=== PATIENT | female | born 1965 | race Hispanic/Latino ===

== ENCOUNTER 2019-02-22 14:24 | Inpatient (IN) | payer OTHER, SELFPAY ==
--- NOTE | 2019-02-22 15:27 | RAD ---
EXAM: 3 views of the right foot HISTORY: Foot pain COMPARISON: None FINDINGS: 3 views of the right foot shows no evidence of acute fracture or dislocation. Moderate diff use soft tissue swelling is seen. No degenerative changes are present. IMPRESSION: No evidence of acute osseous abnormality.
--- NOTE | 2019-02-22 15:29 | RAD ---
RIGHT ANKLE 3 VIEWS: HISTORY: Pain. FINDINGS: Scattered soft tissue swelling and subcutaneous fat stranding noted involving the lower leg and ankle , particularly dorsally over the ankle in a diffuse fashion. No evidence for acute fracture or dislo cation. Probable small secondary ossification center of the distal fibula. IMPRESSION: Marked soft tissue swelling. No acute fracture or dislocation. POS: [facility]
--- NOTE | 2019-02-22 16:40 | ULT ---
EXAM: Right lower extremity venous ultrasound HISTORY: Right lower extremity pain and edema COMPARISON: None TECHNIQUE: Multiplanar grayscale and color Doppler images were obtained in a right lower extremity ve nous ultrasound. Spectral analysis of the Doppler waveforms were performed. FINDINGS: There is visible thrombus in the right distal superficial femoral vein and popliteal vein. This extends into the posterior tibial vein. No thrombus is seen in the common femoral vein or profunda femoral vein. The greater saphenous vein shows no evidence of thrombus. IMPRESSION: DVT in the right leg as above.
[2019-02-22 17:56] LABS: Hemoglobin 7.6 g/dL (12.0-16.0); Mean Corpuscular HGB CONC 31.3 g/dL (32.0-36.0); Mean Corpuscular Hemoglobin 19.6 pg (27.0-31.0); Mean Corpuscular Volume 62.5 fL (78.0-98.0); Mean Platelet Volume 10.4 fL (7.4-10.4); Platelet Count 237 thou/uL (130-400); RBC Distribution Width 15.5 % (11.5-14.5); Red Blood Cell (RBC) Count 3.89 mill/uL (4.20-5.40); White Blood Cell (WBC) Count 7.2 thou/uL (4.8-10.8)
[2019-02-22 18:14] LABS: #Eosinphils 0.2 thou/uL (0.0-0.7); #Lymphocytes 1.4 thou/uL (1.20-3.40); #Monocytes 0.5 thou/uL (0.11-0.59); #Neutrophils 5.1 thou/uL (1.40-6.50); %Basophils 0.2 % (0.0-1.0); %Eosinophils 2.8 % (0.0-10.0); %Lymphocytes 19.1 % (21.0-51.0); %Neutrophils 70.9 % (42.0-75.0); Anisocytosis SLIGHT = 6-15 cells (100X) (0-5/hpf); Elliptocytes SLIGHT = 2-5 cells (100X) (0-1/hpf); Hypochromia MODERATE=16-30 cells (100X) (0-5/hpf); MDiff Complete? YES; Microcytosis MODERATE=15-30 cells (100X) (0-5/hpf); Ovalocytes SLIGHT = 2-5 cells (100X) (0-1/hpf); Platelet Morphology Comment Appears Adequate; Poikilocytosis SLIGHT = 6-15 cells (100X) (0-5/hpf); Polychromasia SLIGHT = 2-3 cells (100X) (0-2/hpf); Reflex for Review?? YES; Schistocytes SLIGHT = 2-5 cells (100X) (0-1/hpf); Tear Drops SLIGHT = 2-5 cells (100X) (0-1/hpf)
[2019-02-22 18:16] LABS: ALT (SGPT) 10 U/L (8-55); AST (SGOT) 18 U/L (5-34); Albumin 3.9 g/dL (3.5-5.0); Alkaline Phosphatase 75 U/L (40-110); Anion Gap 12 mmol/L (10-20); BUN (Urea Nitrogen) 15 mg/dL (9.8-20.1); Bilirubin, Total 0.4 mg/dL (0.2-1.2); Calc. Creatinine Clearance 0 mL/min (70-130); Calcium 8.9 mg/dL (7.8-10.44); Carbon Dioxide 22 mmol/L (22-29); Chloride 108 mmol/L (98-107); Estimated GFR-MDRD Greater than 90; Globulin 3.4 g/dL (2.4-3.5); Glucose 115 mg/dL (70-105); Potassium 3.1 mmol/L (3.5-5.1); Protein, Total 7.3 g/dL (6.0-8.3); Sodium 139 mmol/L (136-145)
--- NOTE | 2019-02-22 20:38 | PDOC.FPRHP ---
- History of Present Illness Chief Complaint: Calf Swelling History of Present Illness: Pt is a 53 yo female without a primary care provider who presents with a 3 week history of R ankle pain, swelling. The swelling moved proximally towards knee where she states swelling ends. Due to the pain and swelling she was seen in the emergency department. In the ED she was found to have a DVT in her R LE. She denies recent travel, injury, surgery to leg, smoking, oral contraception. She does not have any follow up with a PCP - no cancer screenings performed. She denies blood in stool except for one instance in the last month of bright red blood. She does not have family history of colon cancer - brother had pancreatic cancer, mother lung cancer. She did endorse a ~15 pound weight loss over the last couple of months although she states her diet as decreased. She denies SOB, vision changes, lightheadedness, tachycardia, palpitations, LOC, syncope. In the ED she was also found to have a Hgb of 7.8 which prevented her from being discharged with outpt workup. - Allergies/Adverse Reactions Allergies Allergy/AdvReac Type Severity Reaction Status Date / Time acetaminophen [From Tylenol] AdvReac dizziness Verified 02/22/19 21:00 - Home Medications Medication Instructions Recorded Confirmed Type No Known 02/22/19 02/22/19 History - History PMHx: none PSHx: none FHx: Brother - pancreatic cancer, Mother - lung cancer Social: denies alcohol, drugs, tobacco - Review of Systems General: reports: weight/appetite/sleep changes. denies: fever/chills Eyes: denies: eye pain, vision changes Respiratory: denies: cough, congestion, shortness of breath Cardiovascular: denies: chest pain, palpitation Gastrointestinal: denies: nausea, vomiting, diarrhea, constipation Genitourinary: denies: incontinence, dysuria, polyuria Skin: denies: rashes, lesions Neurological: denies: numbness, syncope - Vital signs BP: 177/103 HR: 88 RR: 16 Tmax: 99.3 Pox: 100% on RA Wt: 83.1kg - Physical Exam Constitutional: NAD, awake, alert and oriented HEENT: PERRLA, EOMI Neck: supple, FROM Heart: RRR, normal S1/S2 Lungs: CTAB, no respiratory distress, good air movement Abdomen: soft, non-tender, bowel sounds present Musculoskeletal: ROM grossly normal -Musculoskeletal: R LE extremity swollen compared to L with mild tender to palpation; 16.25 cm R calf vs 13.75 cm L calf Neurological: no focal deficit, CN II-XII intact Skin: good turgor, capillary refill <2 seconds Heme/Lymphatic: no purpura, no petechia Psychiatric: good judgment and insight FMR H&P: Results - Labs Result Diagrams: 02/23/19 06:46 02/23/19 06:46 Lab results: WBC 7.2 thou/uL (4.8-10.8) 02/22/19 17:45 Hgb 7.6 g/dL (12.0-16.0) L 02/22/19 17:45 Hct 24.3 % (36.0-47.0) L 02/22/19 17:45 MCV 62.5 fL (78.0-98.0) L 02/22/19 17:45 Plt Count 237 thou/uL (130-400) 02/22/19 17:45 Neutrophils % 70.9 % (42.0-75.0) 02/22/19 17:45 Sodium 139 mmol/L (136-145) 02/22/19 17:45 Potassium 3.1 mmol/L (3.5-5.1) L 02/22/19 17:45 Chloride 108 mmol/L (98-107) H 02/22/19 17:45 Carbon Dioxide 22 mmol/L (22-29) 02/22/19 17:45 BUN 15 mg/dL (9.8-20.1) 02/22/19 17:45 Creatinine 0.67 mg/dL (0.6-1.1) 02/22/19 17:45 Glucose 115 mg/dL (70-105) H 02/22/19 17:45 Calcium 8.9 mg/dL (7.8-10.44) 02/22/19 17:45 Total Bilirubin 0.4 mg/dL (0.2-1.2) 02/22/19 17:45 AST 18 U/L (5-34) 02/22/19 17:45 ALT 10 U/L (8-55) 02/22/19 17:45 Alkaline Phosphatase 75 U/L (40-110) 02/22/19 17:45 Serum Total Protein 7.3 g/dL (6.0-8.3) 02/22/19 17:45 Albumin 3.9 g/dL (3.5-5.0) 02/22/19 17:45 - Radiology Interpretation US - venous Status: report reviewed by me (R distal superficial femoral, popliteal, posterior tibial vein venous thrombus) FMR H&P: A/P - Problem List (1) DVT (deep vein thrombosis) in Current Visit: Yes Status: Acute Code(s): O22.30 - DEEP PHLEBOTHROMBOSIS IN , UNSPECIFIED TRIMESTER (2) Anemia Current Visit: Yes Status: Acute Code(s): D64.9 - ANEMIA, UNSPECIFIED (3) Microcytic anemia Current Visit: Yes Status: Acute Code(s): D50.9 - IRON DEFICIENCY ANEMIA, UNSPECIFIED (4) Hypokalemia Current Visit: Yes Status: Acute Code(s): E87.6 - HYPOKALEMIA - Plan Pt is a 53 yo female with no primary care who is being treated for a DVT in RLE , found to be anemic. # DVT RLE U/S revealed thrombus in superficial femoral, popliteal, and posterior tibial vein. Pt has RLE swelling for 3 weeks. She denies chest pain,dyspnea - no concern for PE at this time. She does not appear to have an inciting reason such as recent trip, cancer, injury, surgery, thrombophilia, venous stasis but this will need to be further stratified. She also has poor primary prevention and has not had screening for cancer. No history of colon cancer in family although pt found to have microcytic anemia. She did endorse a decrease in appetite due to GERD over the previous couple of months, 15 # weight loss. States she has poor diet. - start warfarin, lovenox - pt does not have insurance - PTINR studies pending # Microcytic Anemia As above. Pt is post-menopausal. Denies blood in stool except 1 episode of bright blood. - pending RBC folate, B12, Coag panel, Peripheral smear, Hgb electrophoresis, occult blood stool # Need for PCP # Primary Prevention - needs well woman exam, breast exam, colonoscopy in outpt setting. # Hypokalemia - monitor # HTN - monitor at this time. Will likely need medication in am. Fluids: PO Diet: Regular VTE: therapeutic Code: Full Dispo: < 2 day stay FMR H&P: Upper Level - Plan Date/Time: 02/22/192037 I, Agusto Harrington MD, have evaluated this patient and agree with findings/plan as outlined by sports intern resident. Pertinent changes/additions are listed here. Barby Alvarez is a 53 year old F with no known PMH who presented to the ED with a 2 wk history of right LE edema and tenderness. States swelling has progressively worsened during that time. She denies any personal or family history of blood clots. Denies any periods of prolonged immobilization. No hx of smoking or HRT. Has no PCP and has never kept up with preventative screenings. Denies any GI bleeding with exception of occasional small amount of BRBPR. LMP was 5 years ago. In the ED, LE US showed DVT in R leg. Labs significant for Hg of 7.6, platelets 237, WBC 7.2. VSS in ED. Patient admitted for initiation of treatment for DVT and eval of anemia. She is uninsured. Hypercoag panel, PT, PTT, INR, iron studies, B12, rbc folate and hg electrophoresis ordered. Starting therapeutic lovenox and coumadin started. CM consulted. Treatment plan for unprovoked dvt to be determined based on lab results. Anticipate hospital stay <48 hours. Please see sports intern note above for full H&P, which I have reviewed and agree with. Addendum - Attending - Attending Attestation Date/Time: 02/23/19 6816 I personally evaluated the patient and discussed the management with Dr. Berg /Len I agree with the History, Examination, Assessment and Plan documented above with any addition or exceptions noted below. See my event note for details.
[2019-02-22 20:39] VITALS: BMI 27.8
[2019-02-22 22:18] LABS: Iron 23 ug/dL (50-170); Iron Binding Capacity, Total 459 mcg/dL (265-497)
[2019-02-22 22:20] LABS: PTT 34.4 SEC (22.9-36.1); Prothrombin Time 13.6 SEC (12.0-14.7)
[2019-02-22 22:28] LABS: D-Dimer Test 3.65 *mcg/mL (0.27-0.43)
--- NOTE | 2019-02-22 22:32 | PDOC.EVN ---
Addendum - Attending - Attending Attestation Date/Time: 02/22/19 9031 I personally evaluated the patient and discussed the management with Dr. Berg /Len I agree with the History, Examination, Assessment and Plan documented above with any addition or exceptions noted below. 53 yo HF PMH white coat HTN. Presents with 2 wk hx worsening right leg swelling and tenderness. Denies CP/SOB. No personal or FHx of DVT. No hx recurrent SAB. Denies HRT or smoking. Exam shows right leg swelling to knee with 1+ pitting edema. Labs show microcytic anemia (hemoglobin 7.6, MCV 62). Venous doppler of right leg showed DVT. No concern for PE at this time. Uninsured. Admitted for evaluation of anemia and treatment of DVT. Hypercoagulation panel, iron studies , B12, RBC folate, and hemoglobin electrophoresis ordered. Has not had routine preventive screening so need to consider malignancy but lower suspicion given no constitutional sx. Start warfarin with lovenox bridge. Further treatment and dispo pending lab evaluation.
[2019-02-22 22:43] LABS: Ferritin Less than 2.00 ng/mL (10-291); Homocysteine 7.81 umol/L (5.08-15.39); Vitamin B12 499 pg/mL (211-911)
[2019-02-22] MEDS ORDERED: Warfarin Sodium 5 MG TAB PO SCH (23:15)
[2019-02-23] MEDS ORDERED: Potassium Chloride 20 MEQ TAB PO SCH (05:00)
--- NOTE | 2019-02-23 06:30 | PDOC.FM ---
- Subjective Subjective: Patient doing well this morning. Discussed plan of care, including bridging anticoagulation therapy. Patient agreeable with plan of care. Discussed importance of preventative health services. 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 Discussed clinics in the area of [place] scale. Patient agreeable. - Objective Vital Signs & Weight: Vital Signs (12 hours) Temp Pulse Resp BP Pulse Ox 02/23/19 03:01 99.0 F 89 18 138/79 100 02/22/19 22:51 98.5 F 93 20 153/78 H 100 02/22/19 20:38 98.5 F 84 18 176/91 H 100 Weight Weight 83.143 kg Result Diagrams: 02/23/19 06:46 02/23/19 06:46 Phys Exam - Physical Examination Constitutional: NAD HEENT: moist MMs, sclera anicteric Neck: supple, full ROM Respiratory: no wheezing, clear to auscultation bilateral Cardiovascular: RRR, no significant murmur Gastrointestinal: soft, non-tender Musculoskeletal: pulses present 1+ edema R leg to knee Neurological: normal sensation, moves all 4 limbs Psychiatric: normal affect, A&O x 3 Skin: no rash, normal turgor Dx/Plan (1) Anemia Code(s): D64.9 - ANEMIA, UNSPECIFIED Status: Acute (2) DVT (deep vein thrombosis) in Code(s): O22.30 - DEEP PHLEBOTHROMBOSIS IN , UNSPECIFIED TRIMESTER Status: Acute (3) Hypokalemia Code(s): E87.6 - HYPOKALEMIA Status: Acute (4) Microcytic anemia Code(s): D50.9 - IRON DEFICIENCY ANEMIA, UNSPECIFIED Status: Acute - Plan Plan: Pt is a 53 yo female with no primary care who is being treated for a DVT in RLE , found to be anemic. # DVT RLE U/S: thrombus in superficial femoral, popliteal, and posterior tibial vein. Pt has RLE swelling for 3 weeks. She denies chest pain,dyspnea - no concern for PE at this time. DVT of unknown cause: no recent trip, cancer, injury, surgery, thrombophilia, venous stasis. No history of colon cancer in family although pt found to have microcytic anemia. - Continue warfarin, lovenox - pt does not have insurance so will likely pursue therapeutic anticoagulation in the hospital as she would have poor outpatient follow up - PT/INR studies wnl, with INR at 1.0; will continue to monitor INR and titrate warfarin accordingly # Microcytic Anemia As above. Pt is post-menopausal. Denies blood in stool except 1 episode of bright blood. -B12 wnl -iron low at 23, ferritin low at <2.0. TIBC 459; will start patient on iron at this time - pending RBC folate, Peripheral smear, Hgb electrophoresis, occult blood stool # Need for PCP -will provide TAMP card and list of PCPs in the area # Primary Prevention - needs well woman exam, breast exam, colonoscopy in outpt setting. # Hypokalemia - improved today at 3.4, monitor # HTN - BP 138/79 this am. Will continue to monitor and add medication if necessary Fluids: PO Diet: Regular VTE: therapeutic lovenox bridging to warfarin Code: Full Dispo: inpatient for therapeutic anticoagulation for R ankle DVT
[2019-02-23 07:07] LABS: #Eosinphils 0.3 thou/uL (0.0-0.7); #Lymphocytes 1.5 thou/uL (1.20-3.40); #Monocytes 0.6 thou/uL (0.11-0.59); #Neutrophils 3.7 thou/uL (1.40-6.50); %Basophils 0.7 % (0.0-1.0); %Eosinophils 4.4 % (0.0-10.0); %Lymphocytes 24.8 % (21.0-51.0); %Neutrophils 61.1 % (42.0-75.0); Hemoglobin 7.3 g/dL (12.0-16.0); Mean Corpuscular HGB CONC 30.9 g/dL (32.0-36.0); Mean Corpuscular Hemoglobin 19.4 pg (27.0-31.0); Mean Corpuscular Volume 62.7 fL (78.0-98.0); Mean Platelet Volume 10.4 fL (7.4-10.4); Platelet Count 234 thou/uL (130-400); RBC Distribution Width 15.6 % (11.5-14.5); Red Blood Cell (RBC) Count 3.77 mill/uL (4.20-5.40); White Blood Cell (WBC) Count 6.1 thou/uL (4.8-10.8)
[2019-02-23 07:32] LABS: ALT (SGPT) 9 U/L (8-55); AST (SGOT) 15 U/L (5-34); Albumin 3.6 g/dL (3.5-5.0); Alkaline Phosphatase 67 U/L (40-110); Anion Gap 9 mmol/L (10-20); BUN (Urea Nitrogen) 10 mg/dL (9.8-20.1); Bilirubin, Total 0.4 mg/dL (0.2-1.2); Calc. Creatinine Clearance 146 mL/min (70-130); Calcium 8.8 mg/dL (7.8-10.44); Carbon Dioxide 25 mmol/L (22-29); Chloride 109 mmol/L (98-107); Estimated GFR-MDRD Greater than 90; Globulin 3.2 g/dL (2.4-3.5); Glucose 101 mg/dL (70-105); Potassium 3.4 mmol/L (3.5-5.1); Protein, Total 6.8 g/dL (6.0-8.3); Sodium 140 mmol/L (136-145)
[2019-02-23] MEDS ORDERED: Ferrous Sulfate 325 MG TAB PO SCH (08:00)
[2019-02-23] MEDS: Enoxaparin Sodium 80 MG/0.8 ML SYRINGE SC SCH ×2 (09:02→20:16)
[2019-02-23] MEDS ORDERED: Warfarin Sodium 5 MG TAB PO SCH (17:00)
--- NOTE | 2019-02-23 23:34 | CON ---
DATE OF CONSULTATION: 02/23/2019 REASON FOR CONSULTATION: Anemia, history of positive fecal occult blood. HISTORY OF PRESENT ILLNESS: Ms. Barby Alvarez is very pleasant 53-year-old female, hospitalized with deep vein thrombosis of right lower extremity. She is on Lovenox. The patient has anemia on admission. The admitting CBC showed anemia with WBC of 7,200, hemoglobin 7.6, hematocrit 24.3, MCV 62.5. Today, the blood count is the same as before and slightly dropped 7.3 hemoglobin. The patient has no prior history of anemia. The patient had not seen a doctor in many years. The patient's bowel movements are regular. She has a BM every day. She denies any hematochezia, any melena, or any other source of blood loss. The patient had a fecal occult blood done by Dr. Estefani Calle today and the occult blood test came back positive. However, the patient has no history of overt GI bleeding. The patient had no abdominal pain, no nausea, or vomiting. The patient has a history of chronic acid reflux and she says she has eating habits are eating more healthy and she had no heartburn or dyspepsia. The patient has no abdominal pain, no nausea, or vomiting. There is no history of any blood loss from genitourinary tract. No nose bleeding. No gum bleeding. She has good energy level. She does not feel any fatigue or tiredness. There is no family history of colon cancer, although there is family history of pancreatic cancer and lung cancer. The patient has no specific GI symptoms. ALLERGIES: NO ALLERGIES. SOCIAL HISTORY: The patient does not smoke or drink alcohol. MEDICAL ILLNESSES: None. PAST SURGICAL HISTORY: None. FAMILY HISTORY: Brother, pancreatic cancer. Mother, lung cancer. SOCIAL HISTORY: The patient does not smoke or drink alcohol. REVIEW OF SYSTEMS: A 10 point system review totally unremarkable except for the pain over the right lower extremity and was found to have deep vein thrombosis. She has anemia. Her energy level is good. She has no fatigue or tiredness. PHYSICAL EXAMINATION: GENERAL: She is a very pleasant Latin-Turk[place] female, appears very comfortable. She is awake, alert, oriented to time, place, and person. VITAL SIGNS: Afebrile. Pulse is 78, blood pressure 148/79. HEENT: Conjunctivae are clear. NECK: Supple. No adenitis or thyromegaly noted. CARDIOVASCULAR: First and second heart sounds heard. LUNGS: Clear to auscultation. ABDOMEN: Soft. Abdomen is nondistended. Abdomen is nontender. No organomegaly. EXTREMITIES: No edema, just some mild tenderness over the right leg and thigh noted_. LABORATORY DATA: Shows anemia which is microcytic, MCV 62.5, platelet count 137,000, hemoglobin 7.6, hematocrit 24.3. Chemistry panel is basically normal with normal LFTs and albumin is 3.6. The fecal occult blood test done by Dr. Goldberg came back positive. CLINICAL IMPRESSION: A 53-year-old female with deep vein thrombosis of right lower extremity, on Lovenox. She has microcytic anemia, but she has no GI symptoms. She had positive stool for occult blood. However, she has no history of any hematochezia or melena. RECOMMENDATIONS: 1. Iron supplement. 2. Continue Lovenox. 3. From GI standpoint, the patient can be discharged home and we will bring the patient back as outpatient after 1 month of anticoagulation. At present time, there is no need for any emergent endoscopy as she has no overt GI bleeding. She can go home on blood thinners and will come back to me in 1 month for EGD and colonoscopy. Job ID: [id number] [facility] HOSPITALChasidy
--- NOTE | 2019-02-24 05:19 | PDOC.FM ---
- Subjective Subjective: Patient doing well this morning. Discussed that she met with Dr. De Paz yesterday, and he recommended outpatient follow up for colonoscopy. Patient states she found an insurance plan she is going to apply for tomorrow, and she plans to have follow up with an outpatient clinic as well. She met with produce service team member yesterday to discuss food choices while on warfarin. She has also been reading on what to do to prevent future DVTs. - Objective Vital Signs & Weight: Vital Signs (12 hours) Temp Pulse Resp BP Pulse Ox 02/23/19 20:15 99.0 F 88 18 112/71 99 02/23/19 17:41 99.3 F 99 14 136/72 100 Weight Weight 83.143 kg I&O: 02/22/19 02/23/19 02/24/19 06:59 06:59 06:59 Intake Total 900 Balance 900 Result Diagrams: 02/23/19 06:46 02/23/19 06:46 Phys Exam - Physical Examination Constitutional: NAD HEENT: moist MMs, sclera anicteric Neck: supple, full ROM Respiratory: no wheezing, clear to auscultation bilateral Cardiovascular: RRR, no significant murmur Gastrointestinal: soft, non-tender Musculoskeletal: pulses present 1+ edema RLE Neurological: non-focal, moves all 4 limbs Psychiatric: normal affect, A&O x 3 Skin: no rash, normal turgor Dx/Plan (1) Anemia Code(s): D64.9 - ANEMIA, UNSPECIFIED Status: Acute (2) DVT (deep vein thrombosis) in Code(s): O22.30 - DEEP PHLEBOTHROMBOSIS IN , UNSPECIFIED TRIMESTER Status: Acute (3) Hypokalemia Code(s): E87.6 - HYPOKALEMIA Status: Acute (4) Microcytic anemia Code(s): D50.9 - IRON DEFICIENCY ANEMIA, UNSPECIFIED Status: Acute - Plan Plan: Pt is a 53 yo female with no primary care who is being treated for a DVT in RLE , found to be anemic. # DVT RLE U/S: thrombus in superficial femoral, popliteal, and posterior tibial vein. Pt has RLE swelling for 3 weeks. She denies chest pain,dyspnea - no concern for PE at this time. DVT of unknown cause: no recent trip, cancer, injury, surgery, thrombophilia, venous stasis. No history of colon cancer in family although pt found to have microcytic anemia. - Continue warfarin, lovenox - pt does not have insurance so will likely pursue therapeutic anticoagulation in the hospital as she would have poor outpatient follow up - INR at 1.1 today after 2 days of 5mg warfarin; will increase warfarin to 10mg and recheck INR tmrw - coagulation panel pending # Microcytic Anemia As above. Pt is post-menopausal. Denies blood in stool except 1 episode of bright blood. -B12 wnl -iron low at 23, ferritin low at <2.0. TIBC 459; patient started on iron - pending RBC folate, Peripheral smear, Hgb electrophoresis -FOBT+ -consulted GI, Dr. De Paz, on 02/23, appreciate recs -rec iron supplementation, and continued anticoagulation with f/u with him in 1 month for outpatient EGD and colonoscopy # Need for PCP -will provide TAMP card and list of PCPs in the area # Primary Prevention - needs well woman exam, breast exam -will have colonoscopy with Dr. De Paz in outpt setting. # Hypokalemia - improved 02/23 3.4, monitor # HTN, resolved - BP stable overnight. Will continue to monitor and add medication if necessary Fluids: PO Diet: Regular VTE: therapeutic lovenox bridging to warfarin Code: Full Dispo: inpatient for therapeutic anticoagulation for RLE DVT
[2019-02-24 06:06] LABS: INR-International Normal Ratio 1.1; PTT 42.9 SEC (22.9-36.1); Prothrombin Time 13.9 SEC (12.0-14.7)
[2019-02-24] MEDS: Ferrous Sulfate 325 MG TAB PO SCH ×2 (09:04→16:52)
[2019-02-24] MEDS: Enoxaparin Sodium 80 MG/0.8 ML SYRINGE SC SCH ×2 (09:04→21:19)
[2019-02-24 09:07] LABS: #Basophils 0.1 thou/uL (0.0-0.2); #Eosinphils 0.2 thou/uL (0.0-0.7); #Lymphocytes 1.4 thou/uL (1.20-3.40); #Monocytes 0.4 thou/uL (0.11-0.59); #Neutrophils 3.3 thou/uL (1.40-6.50); %Basophils 1.8 % (0.0-1.0); %Eosinophils 2.9 % (0.0-10.0); %Lymphocytes 26.2 % (21.0-51.0); %Neutrophils 61.1 % (42.0-75.0); Hemoglobin 7.4 g/dL (12.0-16.0); Mean Corpuscular HGB CONC 30.3 g/dL (32.0-36.0); Mean Corpuscular Hemoglobin 19.1 pg (27.0-31.0); Mean Corpuscular Volume 62.8 fL (78.0-98.0); Mean Platelet Volume 10.1 fL (7.4-10.4); Platelet Count 250 thou/uL (130-400); RBC Distribution Width 15.5 % (11.5-14.5); Red Blood Cell (RBC) Count 3.88 mill/uL (4.20-5.40); White Blood Cell (WBC) Count 5.3 thou/uL (4.8-10.8)
--- NOTE | 2019-02-24 12:14 | PRG ---
DATE OF SERVICE: 02/24/2019 SUBJECTIVE: This is a 53-year-old female, hospitalized with right leg pain and was found to have DVT. She is on anticoagulation. I was asked to see the patient because of positive fecal occult blood. The patient has no history of hematochezia or melena. The patient's anemia appears to be chronic in nature. She had no h/o active G I bleeding.. Hemoglobin today is 7.4. PHYSICAL EXAMINATION: VITAL SIGNS: Pulse is 70, blood pressure is 120/70. CARDIOVASCULAR SYSTEM: Within normal limits. LUNGS: Within normal limits. ABDOMEN: Soft. No organomegaly. No tenderness. No masses. CLINICAL IMPRESSION: 1. Anemia, iron deficiency. 2. Positive fecal occult blood. 3. Deep venous thrombosis, right leg. RECOMMENDATIONS: 1. Continue anticoagulation. 2. Iron supplement. 3. We will plan for the endoscopic studies, one from today as an outpatient. Job ID: [id number] MTDD
[2019-02-24] MEDS ORDERED: Ibuprofen 200 MG TAB PO SCH (15:45)
[2019-02-24] MEDS: Warfarin Sodium 10 MG TAB PO SCH (16:51)
--- NOTE | 2019-02-25 05:30 | PDOC.FM ---
- Subjective Subjective: Patient doing well this morning. Denies any hematuria or hematochezia overnight. Discussed plan of care of continuing warfarin today, patient agreeable with plan of care. Went to perform pelvic exam later yesterday morning to examine "ball" patient feels at times on her labia. During discussion patient revealed that she did not actually have bleeding per rectum, but actually 1 large clot last month from her vagina. Performed pelvic exam, was not able to appreciate any masses or cysts, and patient could not either. Performed VP3 and GC/G. Cervix appeared slightly red around the cervical os, and discussed with patient the importance of getting pap smear with a PCP, as patient states she has not had one in 20 years. Patient agreeable with plan of care. - Objective Vital Signs & Weight: Vital Signs (12 hours) Temp Pulse Resp BP Pulse Ox 02/25/19 03:51 97.9 F 84 16 115/71 99 02/24/19 23:25 98.1 F 75 16 104/60 93 L 02/24/19 19:52 98.6 F 85 16 120/75 95 Weight Weight 83.143 kg I&O: 02/23/19 02/24/19 02/25/19 06:59 06:59 06:59 Intake Total 900 1470 Balance 900 1470 Result Diagrams: 02/24/19 08:45 02/23/19 06:46 Phys Exam - Physical Examination Constitutional: NAD HEENT: moist MMs, sclera anicteric Neck: supple, full ROM Respiratory: no wheezing, clear to auscultation bilateral Cardiovascular: RRR, no significant murmur Gastrointestinal: soft, non-tender Musculoskeletal: no edema, pulses present Neurological: non-focal, moves all 4 limbs Psychiatric: normal affect, A&O x 3 Skin: no rash, normal turgor Dx/Plan (1) Anemia Code(s): D64.9 - ANEMIA, UNSPECIFIED Status: Acute (2) DVT (deep vein thrombosis) in Code(s): O22.30 - DEEP PHLEBOTHROMBOSIS IN , UNSPECIFIED TRIMESTER Status: Acute (3) Hypokalemia Code(s): E87.6 - HYPOKALEMIA Status: Acute (4) Microcytic anemia Code(s): D50.9 - IRON DEFICIENCY ANEMIA, UNSPECIFIED Status: Acute - Plan Plan: Pt is a 53 yo female with no primary care who is being treated for a DVT in RLE , found to be anemic. # DVT RLE U/S: thrombus in superficial femoral, popliteal, and posterior tibial vein. Pt has RLE swelling for 3 weeks. She denies chest pain,dyspnea - no concern for PE at this time. DVT of unknown cause: no recent trip, cancer, injury, surgery, thrombophilia, venous stasis. No history of colon cancer in family although pt found to have microcytic anemia. - Continue warfarin, lovenox - pt does not have insurance so will likely pursue therapeutic anticoagulation in the hospital as she would have poor outpatient follow up - INR at 1.2 after increase to warfarin of 10mg 02/24, will continue 10mg warfarin today - coagulation panel pending # Microcytic Anemia As above. Pt is post-menopausal. Per patient has had 1 large blood clot per vagina last month, and stated that she did not in fact have blood per rectum. Pelvic exam 02/24 did not show any humble blood or obvious abnormalities, though area around cervical os appeared slightly red -VP3 neg, GC/G pending -B12 wnl -iron low at 23, ferritin low at <2.0. TIBC 459; patient started on iron - pending RBC folate, Peripheral smear, Hgb electrophoresis -FOBT+ -consulted GI, Dr. De Paz, on 02/23, appreciate recs -rec iron supplementation, and continued anticoagulation with f/u with him in 1 month for outpatient EGD and colonoscopy -Hgb stable # Need for PCP -will provide TAMP card and list of PCPs in the area # Primary Prevention - needs well woman exam, breast exam -will have colonoscopy with Dr. De Paz in outpt setting. # Hypokalemia - improved 02/23 3.4, monitor # HTN, resolved - BP stable overnight. Will continue to monitor and add medication if necessary Fluids: PO Diet: Regular VTE: therapeutic lovenox bridging to warfarin Code: Full Dispo: inpatient for therapeutic anticoagulation for RLE DVT
[2019-02-25 06:15] LABS: INR-International Normal Ratio 1.2; PTT 43.2 SEC (22.9-36.1)
[2019-02-25] MEDS: Enoxaparin Sodium 80 MG/0.8 ML SYRINGE SC SCH ×2 (08:02→20:20)
[2019-02-25] MEDS: Ferrous Sulfate 325 MG TAB PO SCH (08:03)
--- NOTE | 2019-02-25 11:48 | PRG ---
DATE OF SERVICE: 02/25/2019 I have discussed the case and read the note of Dr. Estefani Calle and agree with her assessment and plan. Ms. Alvarez is a pleasant 53-year-old lady who presented to the ER with a 3-week history of right ankle and calf pain and swelling. She was subsequently found to have a DVT and was admitted for treatment. She was also found to have a rather significant anemia with a hemoglobin of 7.8. She states that several weeks ago she had one episode of bright red blood per rectum. In subsequent questioning, she was not sure whether it was blood coming from the rectum or from her vagina. In the event, she would likely need workups for both GI and bleeding. She is postmenopausal by approximately one decade. This morning, she is awake, alert, in no acute distress. We have done anemia studies and her iron studies, etc., are very consistent with iron deficiency anemia. We have started her on oral iron and will also check a transvaginal ultrasound. We consulted GI and they will arrange an outpatient colonoscopy once treatment for her DVT is completed. Job ID: [id number]
[2019-02-25] MEDS ORDERED: Ibuprofen 200 MG TAB PO SCH (12:00)
--- NOTE | 2019-02-25 16:39 | ULT ---
ULTRASOUND PELVIC ULTRASOUND TRANSVAGINAL DOPPLER DUPLEX: DATE: 02/25/2019 HISTORY: 53-year-old female with postmenopausal vaginal bleeding TECHNIQUE: Transabdominal transducer and endovaginal transducer used to visualize intrapelvic contents with mei scale, color-flow, and spectral analysis. FINDINGS: Uterus measures 7 x 4 x 4.5 cm. Endometrial stripe: 1.1 cm (11 mm). Heterogeneous echogenicity with mixed intermediate and anechoic c omponents. 2 x 2 x 2 cm solid mass at the uterine fundus with heterogeneous echogenicity. No free fluid in cul-de-sac. Bilateral ovaries not visualized. IMPRESSION: 1) a 2 cm uterine leiomyoma (fibroid). 2) thickened endometrial stripe with heterogeneous mixed solid and cystic appearance. Nonspecific but abnormal. Consider tissue sampling.
[2019-02-25] MEDS: Warfarin Sodium 10 MG TAB PO SCH (17:36)
[2019-02-26 05:30] LABS: INR-International Normal Ratio 1.4; PTT 52.8 SEC (22.9-36.1); Prothrombin Time 17.1 SEC (12.0-14.7)
--- NOTE | 2019-02-26 05:39 | PDOC.FM ---
- Subjective Subjective: Patient doing well this morning. Discussed INR levels and need for further anticoagulation. Patient reports she was able to obtain insurance. Will look into if insurance would cover eliquis/apixaban so that patient could be discharged with f/u outpatient. - Objective Vital Signs & Weight: Vital Signs (12 hours) Temp Pulse Resp BP Pulse Ox 02/25/19 19:58 98.5 F 74 14 112/72 99 Weight Weight 83.143 kg I&O: 02/24/19 02/25/19 02/26/19 06:59 06:59 06:59 Intake Total 900 1470 Balance 900 1470 Result Diagrams: 02/24/19 08:45 02/23/19 06:46 Phys Exam - Physical Examination Constitutional: NAD HEENT: moist MMs, sclera anicteric Neck: supple, full ROM Respiratory: no wheezing, clear to auscultation bilateral Cardiovascular: RRR, no significant murmur Gastrointestinal: soft, non-tender Musculoskeletal: no edema, pulses present RLE at baseline Neurological: normal sensation, moves all 4 limbs Psychiatric: normal affect, A&O x 3 Skin: no rash, normal turgor Dx/Plan (1) Anemia Code(s): D64.9 - ANEMIA, UNSPECIFIED Status: Acute (2) DVT (deep vein thrombosis) in Code(s): O22.30 - DEEP PHLEBOTHROMBOSIS IN , UNSPECIFIED TRIMESTER Status: Acute (3) Hypokalemia Code(s): E87.6 - HYPOKALEMIA Status: Acute (4) Microcytic anemia Code(s): D50.9 - IRON DEFICIENCY ANEMIA, UNSPECIFIED Status: Acute - Plan Plan: Pt is a 53 yo female with no primary care who is being treated for a DVT in RLE , found to be anemic. # DVT RLE U/S: thrombus in superficial femoral, popliteal, and posterior tibial vein. Pt has RLE swelling for 3 weeks. She denies chest pain, dyspnea - no concern for PE at this time. DVT of unknown cause: no recent trip, cancer, injury, surgery, thrombophilia, venous stasis. No history of colon cancer in family although pt found to have microcytic anemia. - Continue warfarin, lovenox - pt does not have insurance so pursuing therapeutic anticoagulation in the hospital as she would have poor outpatient follow up - INR at 1.4 after increase to warfarin of 10mg 02/24, will continue 10mg warfarin today and look into if new insurance would cover eliquis/apixiaban - coagulation panel pending # Microcytic Anemia As above. Pt is post-menopausal. Per patient has had 1 large blood clot per vagina last month, and stated that she did not in fact have blood per rectum. Pelvic exam 02/24 did not show any humble blood or obvious abnormalities, though area around cervical os appeared slightly red -VP3 neg, GC/G pending -pelvic u/s: 2cm uterine leiomyoma, thickened endometrial stripe (1.1cm) heterogenous mixed and cystic appearance, tissue sampling recommended; will plan for possible endometrial biopsy today -B12 wnl -iron low at 23, ferritin low at <2.0. TIBC 459; patient started on iron - pending RBC folate, Peripheral smear, Hgb electrophoresis -FOBT+ -consulted GI, Dr. De Paz, on 02/23, appreciate recs -rec iron supplementation, and continued anticoagulation with f/u with him in 1 month for outpatient EGD and colonoscopy -Hgb stable # Need for PCP -will provide [facility] card and list of PCPs in the area # Primary Prevention - needs well woman exam, breast exam -will have colonoscopy with Dr. De Paz in outpt setting. # Hypokalemia - improved 02/23 3.4, monitor # HTN, resolved - BP stable overnight. Will continue to monitor and add medication if necessary Fluids: PO Diet: Regular VTE: therapeutic lovenox bridging to warfarin Code: Full Dispo: inpatient for therapeutic anticoagulation for RLE DVT, possible endometrial biopsy today
[2019-02-26] MEDS ORDERED: Ferrous Sulfate 325 MG TAB PO SCH (08:00)
[2019-02-26] MEDS: Enoxaparin Sodium 80 MG/0.8 ML SYRINGE SC SCH (08:01)
[2019-02-26 08:52] LABS: #Basophils 0.1 thou/uL (0.0-0.2); #Eosinphils 0.2 thou/uL (0.0-0.7); #Lymphocytes 1.4 thou/uL (1.20-3.40); #Monocytes 0.4 thou/uL (0.11-0.59); #Neutrophils 3.6 thou/uL (1.40-6.50); %Basophils 1.1 % (0.0-1.0); %Eosinophils 2.7 % (0.0-10.0); %Lymphocytes 24.3 % (21.0-51.0); %Monocytes 6.9 % (0.0-10.0); Mean Corpuscular HGB CONC 30.3 g/dL (32.0-36.0); Mean Corpuscular Hemoglobin 19.6 pg (27.0-31.0); Mean Corpuscular Volume 64.5 fL (78.0-98.0); Mean Platelet Volume 8.9 fL (7.4-10.4); Platelet Count 284 thou/uL (130-400); RBC Distribution Width 15.5 % (11.5-14.5); Red Blood Cell (RBC) Count 4.11 mill/uL (4.20-5.40); White Blood Cell (WBC) Count 5.5 thou/uL (4.8-10.8)
--- NOTE | 2019-02-26 10:52 | PRG ---
DATE OF SERVICE: 02/26/2019 Ms. Alvarez's ultrasound does show an increased endometrial stripe with concern for possible hyperplasia versus carcinoma. We will schedule her for an outpatient endometrial biopsy. She also has a 2 cm fibroid. She will still need a GI workup to complete her evaluation of iron deficiency anemia. Job ID: [id number]
[2019-02-26 11:15] VITALS: BP 129/77; TEMP 99.1
[2019-02-26 13:10] LABS: Folate,Hemolysate 374.4 ng/mL (Not Estab.)
--- NOTE | 2019-02-26 13:49 | PDOC.BPN ---
- Brief Progress Note Discussed current insurance status and recommendations with patient, as per CM patient's insurance covers hospitalizations and primary care, with no outpatient coverage and no RX coverage except for a discount plan. Discussed with patient that due to her current insurance plan, it would likely be costly to send her home on eliquis. Patient stated desires to go home on eliquis, due to her feeling like the increased office visits for warfarin monitoring would not be covered. Encouraged patient to call insurance company to see how much eliquis would cost for her with the discount plan, and if the insurance would cover any labwork for warfarin or office visits s/p hospitalization. Stressed the importance of monitoring while on warfarin due to risks for subtherapeutic INR for future clots and supratherapeutic INR for future bleeds. Patient expressed understanding. Stated she would call her insurance plan to see if eliquis would be something affordable for her to go home on, and to see if she could find a plan that would cover preventative care outpatient. During discussion patient reports that she does not want to complete further cancer workup while hospitalized, including both colonoscopy and endometrial biopsy. I discussed that based on her +FOBT, visulization of erythematous cervical os on pelvic exam, and transvaginal ultrasound showing a thickened endometrial stripe, I am concerned for cancer at this time and strongly recommend further evaluation. Patient states that she would prefer to pursue colonoscopy and endometrial biopsy on an outpatient basis. She states that she has never been hospitalized before and feels overwhelmed, would prefer to focus on her DVT and anticoagulation at this time and pursue cancer workup outpatient. I discussed that [employer] has a [employer] program that she may be able to qualify for for reduced cost colonoscopy, endometrial biopsy, and pap smear. Patient agreeable to seeing if she would qualify for the program. Will continue conversation with patient.
[2019-02-26 13:54] LABS: Hemoglobin A1c 5.5 % (4.0-6.0)
[2019-02-26 14:09] LABS: Hemoglobin A2 1.8 % (1.8-3.2); Hemoglobin F 0 % (0.0-2.0); Interpretation Note: (.)
[2019-02-26] MEDS ORDERED: Apixaban 5 MG TAB PO SCH (16:30)
[2019-02-27 07:36] LABS: Chlamydia by PCR Not Detected (NotDetected); GC by PCR Not Detected (NotDetected)
[2019-02-28 12:40] LABS: EliA Celiac New Method **** NEW METHOD ****; t-Transglutaminase (tTG) IgA 0.4 EliAU/mL (<7 Negative); t-Transglutaminase (tTG) IgG Less than 0.6 EliAU/mL (<7 Negative)
[2019-02-28 13:02] LABS: Cardiolipin IgA Ab 2.2 APL-U/mL (<14 Negative); Cardiolipin IgG Ab Less than 0.5 GPL-U/mL (<10 Negative); Cardiolipin IgM Ab 5.4 MPL-U/mL (<10 Negative); EliA APS New Method **** NEW METHOD ****
[2019-02-28 13:37] LABS: Factor VIII Test 298.9 % ACTIVE (56-157); Protein C Activity 105 % (78-152)
[2019-03-01 10:06] LABS: HEX PHOS LA Tube 1 57.9 SEC; HEX PHOS LA Tube 2 48.9 SEC
== END 2019-02-26 17:53 | disposition home or self-care (01) | DRG 301 ==
LOC: ERS 14:24 → OBSVTOIN 20:22 → SJJU 20:22
PROVIDERS: ADMIT Family Medicine; ATTEND Family Medicine
DX: I82.4Z1 Acute embolism and thrombosis of unspecified deep veins of right distal lower extremity (principal); E87.6 Hypokalemia; I10 Essential (primary) hypertension; K21.9 Gastro-esophageal reflux disease without esophagitis; D50.9 Iron deficiency anemia, unspecified; Z98.51 Tubal ligation status
CPT/HCPCS: 36415; 76856; 80053; 81240; 81241; 82274; 82607; 82728; 82747; 83021; 83036; 83090; 83516; 83540; 83550; 85025; 85060; 85240; 85300; 85303; 85305; 85307; 85379; 85598; 85610; 85730; 86147; 87480; 87491; 87510; 87591; 87660; J1650

== ENCOUNTER 2020-10-21 05:19 | Inpatient (IN) | payer BC ==
[2020-10-21 05:55] LABS: Mean Corpuscular Volume 70.5 fL (78.0-98.0)
[2020-10-21 05:56] LABS: #Lymphocytes 0.8 thou/uL (1.20-3.40); #Monocytes 0.6 thou/uL (0.11-0.59); #Neutrophils 8.7 thou/uL (1.40-6.50); %Basophils 0.4 % (0.0-1.0); %Eosinophils 0.2 % (0.0-10.0); %Lymphocytes 7.9 % (21.0-51.0); %Monocytes 5.8 % (0.0-10.0); %Neutrophils 85.7 % (42.0-75.0); Mean Corpuscular HGB CONC 30.4 g/dL (32.0-36.0); Mean Corpuscular Hemoglobin 21.5 pg (27.0-31.0); Mean Platelet Volume 9.3 fL (7.4-10.4); Platelet Count 386 thou/uL (130-400); RBC Distribution Width 21.2 % (11.5-14.5); Red Blood Cell (RBC) Count 4.68 mill/uL (4.20-5.40); White Blood Cell (WBC) Count 10.2 thou/uL (4.8-10.8)
[2020-10-21] MEDS ORDERED: Enoxaparin Sodium 80 MG/0.8 ML SYRINGE ONE (05:58)
[2020-10-21] MEDS ORDERED: cefTRIAXone\\ROCEPHIN 2 GM VIAL ONE (05:58)
[2020-10-21] MEDS ORDERED: Azithromycin 500 MG VIAL ONE (05:58)
[2020-10-21] MEDS ORDERED: Aspirin Chewable 81 MG TAB ONE (05:58)
[2020-10-21 06:19] LABS: ALT (SGPT) 24 U/L (8-55); AST (SGOT) 40 U/L (5-34); Albumin 3.7 g/dL (3.5-5.0); Alkaline Phosphatase 61 U/L (40-110); Anion Gap 16 mmol/L (10-20); BUN (Urea Nitrogen) 7 mg/dL (9.8-20.1); Bilirubin, Total 0.6 mg/dL (0.2-1.2); CK (CPK) 103 U/L (29-168); Calc. Creatinine Clearance 0 mL/min (70-130); Calcium 9.5 mg/dL (7.8-10.44); Carbon Dioxide 23 mmol/L (22-29); Chloride 99 mmol/L (98-107); Globulin 4.2 g/dL (2.4-3.5); Glucose 148 mg/dL (70-105); Lipase 35 U/L (8-78); Potassium 3.7 mmol/L (3.5-5.1); Protein, Total 7.9 g/dL (6.0-8.3); Sodium 134 mmol/L (136-145)
[2020-10-21] MEDS ORDERED: Ondansetron PF 4 MG/2 ML Vial IVP PRN (07:56)
[2020-10-21] MEDS ORDERED: Ondansetron ODT 4 MG TAB PO PRN (07:56)
[2020-10-21] MEDS ORDERED: Pharmacy to Dose REMDESIVIR IVPB PRN (08:00)
[2020-10-21] MEDS ORDERED: Ibuprofen 200 MG TAB PO PRN (08:24)
[2020-10-21] MEDS ORDERED: Dexamethasone 4 MG TAB ONE (08:43)
[2020-10-21] MEDS ORDERED: Enoxaparin Sodium 40 MG/0.4 ML SYRINGE ONE (08:43)
[2020-10-21] MEDS: Dexamethasone 4 MG TAB PO SCH (09:09)
[2020-10-21] MEDS ORDERED: REMDESIVIR 200 MG in Sodium Chloride 0.9% 250 ML 210 ML IV SCH (09:30)
[2020-10-21] MEDS ORDERED: Iopamidol-370 76% 500 ML 1 ML ONE (09:53)
[2020-10-21 16:56] VITALS: BMI 28.8
[2020-10-21] MEDS: Albuterol 200 PUFF (6.7GM INHALER) INH PRN (20:13)
[2020-10-22] MEDS ORDERED: Melatonin 3 MG TAB PO PRN (01:27)
[2020-10-22 05:46] LABS: AST (SGOT) 27 U/L (5-34); Anion Gap 11 mmol/L (10-20); BUN (Urea Nitrogen) 7 mg/dL (9.8-20.1); CRP (Inflammatory) 9.81 mg/dL (= or < 0.5); Calc. Creatinine Clearance 144 mL/min (70-130); Carbon Dioxide 25 mmol/L (22-29); Chloride 103 mmol/L (98-107); Glucose 142 mg/dL (70-105); Magnesium 2.2 mg/dL (1.6-2.6); Potassium 3.6 mmol/L (3.5-5.1); Sodium 135 mmol/L (136-145)
[2020-10-22] MEDS ORDERED: Enoxaparin Sodium 40 MG/0.4 ML SYRINGE SC SCH (09:00)
[2020-10-22] MEDS ORDERED: Enoxaparin Sodium 100 MG/ML SYRINGE SC SCH ×2 (09:45→21:00)
[2020-10-22] MEDS: Dexamethasone 4 MG TAB PO SCH (09:47)
[2020-10-22] MEDS: REMDESIVIR 100 MG in Sodium Chloride 0.9% 250 ML 230 ML IV SCH (09:49)
[2020-10-22] MEDS ORDERED: Apixaban 5 MG TAB PO SCH (10:30)
[2020-10-22] MEDS ORDERED: hydrALAZINE 20 MG/ML VIAL SLOW IVP PRN (14:53)
[2020-10-22] MEDS ORDERED: Enoxaparin Sodium 80 MG/0.8 ML SYRINGE SC SCH (21:00)
[2020-10-22] MEDS: Famotidine 20 MG TAB PO SCH (21:15)
[2020-10-22] MEDS: Apixaban 5 MG TAB PO SCH (21:15)
[2020-10-23] MEDS: Benzonatate 100 MG CAP PO PRN ×4 (01:14→20:29)
[2020-10-23 07:21] LABS: Anion Gap 10 mmol/L (10-20); BUN (Urea Nitrogen) 10 mg/dL (9.8-20.1); CRP (Inflammatory) 4.15 mg/dL (= or < 0.5); Calc. Creatinine Clearance 149 mL/min (70-130); Calcium 9.1 mg/dL (7.8-10.44); Carbon Dioxide 27 mmol/L (22-29); Chloride 102 mmol/L (98-107); Glucose 115 mg/dL (70-105); Potassium 3.1 mmol/L (3.5-5.1); Sodium 136 mmol/L (136-145)
[2020-10-23] MEDS: Aspirin 81 mg Enteric Coated Tablet PO SCH (08:49)
[2020-10-23] MEDS: REMDESIVIR 100 MG in Sodium Chloride 0.9% 250 ML 230 ML IV SCH (08:49)
[2020-10-23] MEDS: Famotidine 20 MG TAB PO SCH ×2 (08:50→20:28)
[2020-10-23] MEDS: Apixaban 5 MG TAB PO SCH ×2 (08:50→20:28)
[2020-10-23] MEDS: Dexamethasone 4 MG TAB PO SCH (08:50)
[2020-10-23] MEDS ORDERED: Potassium Chloride 20 MEQ TAB PO SCH (09:45)
[2020-10-23] MEDS: Chlorthalidone 25 MG TAB PO SCH (10:26)
[2020-10-23] MEDS: hydrOXYzine 25 MG TAB PO PRN (10:26)
[2020-10-24] MEDS: Benzonatate 100 MG CAP PO PRN ×3 (05:30→20:12)
[2020-10-24] MEDS: Aspirin 81 mg Enteric Coated Tablet PO SCH (08:55)
[2020-10-24] MEDS: Famotidine 20 MG TAB PO SCH ×2 (08:56→20:12)
[2020-10-24] MEDS: Dexamethasone 4 MG TAB PO SCH (08:56)
[2020-10-24] MEDS: Apixaban 5 MG TAB PO SCH ×2 (08:56→20:11)
[2020-10-24] MEDS: Chlorthalidone 25 MG TAB PO SCH (08:57)
[2020-10-24] MEDS: Escitalopram Oxalate 10 mg Tablet PO SCH (08:58)
[2020-10-24] MEDS: REMDESIVIR 100 MG in Sodium Chloride 0.9% 250 ML 230 ML IV SCH (09:15)
[2020-10-24] MEDS: hydrOXYzine 25 MG TAB PO PRN (17:35)
[2020-10-25] MEDS: hydrOXYzine 25 MG TAB PO PRN (07:16)
[2020-10-25] MEDS: Albuterol 200 PUFF (6.7GM INHALER) INH PRN ×2 (07:30→11:03)
[2020-10-25] MEDS: Chlorthalidone 25 MG TAB PO SCH (08:40)
[2020-10-25] MEDS: Aspirin 81 mg Enteric Coated Tablet PO SCH (08:40)
[2020-10-25] MEDS: Famotidine 20 MG TAB PO SCH (08:42)
[2020-10-25] MEDS: Escitalopram Oxalate 10 mg Tablet PO SCH (08:42)
[2020-10-25] MEDS: Apixaban 5 MG TAB PO SCH (08:42)
[2020-10-25] MEDS: Dexamethasone 4 MG TAB PO SCH (08:43)
[2020-10-25] MEDS: REMDESIVIR 100 MG in Sodium Chloride 0.9% 250 ML 230 ML IV SCH (08:43)
[2020-10-25 09:01] VITALS: TEMP 98.2
[2020-10-25] MEDS: Benzonatate 100 MG CAP PO PRN (11:00)
[2020-10-25 15:35] VITALS: BP 129/89
== END 2020-10-25 15:29 | disposition home or self-care (01) | DRG 177 ==
LOC: ERS 05:19 → ERHOLD 06:25 → 2SE 16:24 → T4-A 10-22 20:58
PROVIDERS: ADMIT Emergency Medicine; ATTEND Emergency Medicine
PROC: XW033E5 Introduction of Remdesivir Anti-infective into Peripheral Vein, Percutaneous Approach, New Technology Group 5 (ICD-10-PCS; principal; 2020-10-21)
PROC: 8E0ZXY6 Isolation (ICD-10-PCS; 2020-10-21)
DX: U07.1 COVID-19 (principal); J12.82 Pneumonia due to coronavirus disease 2019; J96.01 Acute respiratory failure with hypoxia; F41.9 Anxiety disorder, unspecified; F32.9 Major depressive disorder, single episode, unspecified; I10 Essential (primary) hypertension; Z88.8 Allergy status to other drugs, medicaments and biological substances; Z79.01 Long term (current) use of anticoagulants; Z86.718 Personal history of other venous thrombosis and embolism; Z98.51 Tubal ligation status; Z80.1 Family history of malignant neoplasm of trachea, bronchus and lung
CPT/HCPCS: 36415; 71045; 71275; 80048; 80053; 82550; 83036; 83690; 83735; 83880; 84450; 84484; 85025; 85379; 86140; 93005; 93970; 96365; 96367; 96372; J0456; J0696; J1650; J7050; J8540; Q9967

== ENCOUNTER 2021-03-21 17:07 | Inpatient (IN) | payer BC ==
[2021-03-21] MEDS ORDERED: Ondansetron PF 4 MG/2 ML Vial IVP PRN (18:11)
[2021-03-21 18:17] VITALS: BMI 27.1
[2021-03-21 18:51] LABS: #Basophils 0.1 thou/uL (0.0-0.2); #Eosinphils 0.1 thou/uL (0.0-0.7); #Lymphocytes 1.5 thou/uL (1.20-3.40); #Monocytes 0.7 thou/uL (0.11-0.59); #Neutrophils 5.2 thou/uL (1.40-6.50); %Basophils 0.8 % (0.0-1.0); %Eosinophils 0.7 % (0.0-10.0); %Lymphocytes 19.6 % (21.0-51.0); %Monocytes 9.5 % (0.0-10.0); %Neutrophils 69.3 % (42.0-75.0); Hemoglobin 5.7 g/dL (12.0-16.0); Mean Corpuscular HGB CONC 28.8 g/dL (32.0-36.0); Mean Corpuscular Hemoglobin 18.5 pg (27.0-31.0); Mean Corpuscular Volume 64.4 fL (78.0-98.0); Mean Platelet Volume 10.1 fL (7.4-10.4); Platelet Count 260 thou/uL (130-400); RBC Distribution Width 17.3 % (11.5-14.5); Red Blood Cell (RBC) Count 3.06 mill/uL (4.20-5.40); White Blood Cell (WBC) Count 7.4 thou/uL (4.8-10.8)
[2021-03-21 19:08] LABS: ALT (SGPT) 12 U/L (8-55); AST (SGOT) 13 U/L (5-34); Alkaline Phosphatase 68 U/L (40-110); Anion Gap 15 mmol/L (10-20); BUN (Urea Nitrogen) 5 mg/dL (9.8-20.1); Bilirubin, Total 0.5 mg/dL (0.2-1.2); Calc. Creatinine Clearance 136 mL/min (70-130); Calcium 8.4 mg/dL (7.8-10.44); Carbon Dioxide 18 mmol/L (22-29); Chloride 107 mmol/L (98-107); Globulin 3.9 g/dL (2.4-3.5); Glucose 114 mg/dL (70-105); Lipase 33 U/L (8-78); Potassium 3.6 mmol/L (3.5-5.1); Protein, Total 6.9 g/dL (6.0-8.3); Sodium 136 mmol/L (136-145)
[2021-03-21 19:13] LABS: Anisocytosis SLIGHT = 6-15 cells (100X) (0-5/hpf); Elliptocytes SLIGHT = 2-5 cells (100X) (0-1/hpf); Hypochromia MODERATE=16-30 cells (100X) (0-5/hpf); MDiff Complete? YES; Microcytosis SLIGHT = 6-15 cells (100X) (0-5/hpf); Ovalocytes SLIGHT = 2-5 cells (100X) (0-1/hpf); Platelet Morphology Comment Appears Adequate; Poikilocytosis SLIGHT = 6-15 cells (100X) (0-5/hpf); Polychromasia SLIGHT = 2-3 cells (100X) (0-2/hpf); Reflex for Review?? NO; Tear Drops SLIGHT = 2-5 cells (100X) (0-1/hpf)
[2021-03-21] MEDS: Sodium Chloride 0.9% 1,000 ML IV SCH (20:13)
[2021-03-21] MEDS: Pantoprazole 40 MG VIAL IVP SCH (20:16)
[2021-03-21] MEDS: Enoxaparin Sodium 40 MG/0.4 ML SYRINGE SC SCH (20:20)
[2021-03-22] MEDS: Morphine 4 MG/ML VIAL SLOW IVP PRN ×2 (03:45→06:53)
[2021-03-22] MEDS: Sodium Chloride 0.9% 1,000 ML IV SCH ×2 (04:10→08:29)
[2021-03-22] MEDS ORDERED: hydrALAZINE 20 MG/ML VIAL SLOW IVP PRN (08:40)
[2021-03-22] MEDS ORDERED: Ondansetron ODT 4 MG TAB PO PRN (08:40)
[2021-03-22] MEDS ORDERED: Ketorolac Tromethamine 30 MG/ML VIAL IVP SCH (08:45)
[2021-03-22 09:45] LABS: #Eosinphils 0.1 thou/uL (0.0-0.7); #Lymphocytes 1.7 thou/uL (1.20-3.40); #Monocytes 0.6 thou/uL (0.11-0.59); #Neutrophils 4.5 thou/uL (1.40-6.50); %Basophils 0.6 % (0.0-1.0); %Eosinophils 1.1 % (0.0-10.0); %Monocytes 8.5 % (0.0-10.0); %Neutrophils 65.8 % (42.0-75.0); Hemoglobin 7.2 g/dL (12.0-16.0); Mean Corpuscular HGB CONC 29.2 g/dL (32.0-36.0); Mean Corpuscular Hemoglobin 19.9 pg (27.0-31.0); Mean Corpuscular Volume 68.3 fL (78.0-98.0); Platelet Count 244 thou/uL (130-400); RBC Distribution Width 19.9 % (11.5-14.5); Red Blood Cell (RBC) Count 3.63 mill/uL (4.20-5.40); White Blood Cell (WBC) Count 6.9 thou/uL (4.8-10.8)
[2021-03-22 10:12] LABS: ALT (SGPT) 12 U/L (8-55); AST (SGOT) 12 U/L (5-34); Alkaline Phosphatase 69 U/L (40-110); Anion Gap 12 mmol/L (10-20); BUN (Urea Nitrogen) 6 mg/dL (9.8-20.1); Bilirubin, Total 0.9 mg/dL (0.2-1.2); Calc. Creatinine Clearance 136 mL/min (70-130); Calcium 8.5 mg/dL (7.8-10.44); Carbon Dioxide 20 mmol/L (22-29); Chloride 110 mmol/L (98-107); Globulin 3.8 g/dL (2.4-3.5); Glucose 93 mg/dL (70-105); Potassium 3.8 mmol/L (3.5-5.1); Protein, Total 6.8 g/dL (6.0-8.3); Sodium 138 mmol/L (136-145)
[2021-03-22] MEDS: Scopolamine 1.5 mg/72 hour Patch TD SCH (10:21)
[2021-03-22 10:58] LABS: Band 6 % (5-11); Eosinophils 1 % (0-10); Lymphocytes 26 % (21-51); MDiff Complete? YES; Monocytes 1 % (0-10); Neutrophil 66 % (42-75); Ovalocytes SLIGHT = 2-5 cells (100X) (0-1/hpf); Platelet Morphology Comment Appears Adequate; Polychromasia SLIGHT = 2-3 cells (100X) (0-2/hpf)
[2021-03-22] MEDS ORDERED: GoLYTELY 4,000 ml Bottle PO SCH (15:00)
[2021-03-22] MEDS: traMADol HCl 50 MG TAB PO PRN (15:45)
[2021-03-22] MEDS: Enoxaparin Sodium 40 MG/0.4 ML SYRINGE SC SCH (20:37)
[2021-03-22] MEDS: Pantoprazole 40 MG VIAL IVP SCH (20:38)
[2021-03-23 06:53] LABS: Band 1 % (5-11); Hemoglobin 7.2 g/dL (12.0-16.0); Hypochromia SLIGHT = 6-15 cells (100X) (0-5/hpf); Lymphocytes 23 % (21-51); MDiff Complete? YES; Mean Corpuscular Hemoglobin 20.6 pg (27.0-31.0); Mean Corpuscular Volume 68.7 fL (78.0-98.0); Mean Platelet Volume 9.4 fL (7.4-10.4); Microcytosis SLIGHT = 6-15 cells (100X) (0-5/hpf); Monocytes 4 % (0-10); Neutrophil 72 % (42-75); Platelet Count 225 thou/uL (130-400); Platelet Morphology Comment Appears Adequate; RBC Distribution Width 20.3 % (11.5-14.5); White Blood Cell (WBC) Count 5.8 thou/uL (4.8-10.8)
[2021-03-23 06:54] LABS: ALT (SGPT) 10 U/L (8-55); AST (SGOT) 16 U/L (5-34); Alkaline Phosphatase 70 U/L (40-110); Anion Gap 14 mmol/L (10-20); BUN (Urea Nitrogen) 5 mg/dL (9.8-20.1); Bilirubin, Total 0.7 mg/dL (0.2-1.2); Calc. Creatinine Clearance 136 mL/min (70-130); Calcium 8.7 mg/dL (7.8-10.44); Carbon Dioxide 20 mmol/L (22-29); Chloride 107 mmol/L (98-107); Globulin 3.8 g/dL (2.4-3.5); Glucose 95 mg/dL (70-105); Potassium 3.6 mmol/L (3.5-5.1); Protein, Total 6.8 g/dL (6.0-8.3); Sodium 137 mmol/L (136-145)
[2021-03-23] MEDS: Ketorolac Tromethamine 30 MG/ML VIAL IVP PRN ×2 (07:41→18:56)
[2021-03-23] MEDS: Morphine 4 MG/ML VIAL SLOW IVP PRN (07:42)
[2021-03-23] MEDS ORDERED: PROPOFOL 200 MG/20 ML VIAL ONE (12:58)
[2021-03-23] MEDS ORDERED: Lidocaine 1% PF 5 ML VIAL ONE (12:58)
[2021-03-23] MEDS ORDERED: PHENYLEPHRINE-NS 100 MCG/ML 10 ML SYRINGE ONE (12:58)
[2021-03-23] MEDS: traMADol HCl 50 MG TAB PO PRN (20:47)
[2021-03-23] MEDS: Enoxaparin Sodium 40 MG/0.4 ML SYRINGE SC SCH (20:49)
[2021-03-23] MEDS: Pantoprazole 40 MG VIAL IVP SCH (20:50)
[2021-03-24] MEDS ORDERED: Sodium Chloride 0.9% 1,000 ML IV SCH (06:00)
[2021-03-24] MEDS ORDERED: Fentanyl 100 MCG/2 ML VIAL ONE ×2 (06:30→12:04)
[2021-03-24] MEDS ORDERED: Phenylephrine 10 MG/ML VIAL ONE (06:30)
[2021-03-24] MEDS ORDERED: HYDROmorphone 2 MG/ML VIAL ONE (06:30)
[2021-03-24] MEDS ORDERED: Sodium Chloride 0.9% 10 ML ONE (06:30)
[2021-03-24] MEDS ORDERED: Midazolam HCl 2 mg/2 ml Vial ONE (06:30)
[2021-03-24] MEDS ORDERED: Glycopyrrolate 0.2 MG/ML 5 ML SYRINGE ONE (07:37)
[2021-03-24] MEDS ORDERED: Lidocaine 1% PF 5 ML VIAL ONE (07:37)
[2021-03-24] MEDS ORDERED: Esmolol 100 MG/10 ML VIAL ONE (07:37)
[2021-03-24] MEDS ORDERED: Rocuronium Bromide 10 MG/ML (10ML VIAL) ONE (07:37)
[2021-03-24] MEDS ORDERED: Metoclopramide HCl 10 MG/2 ML VIAL ONE (07:37)
[2021-03-24] MEDS ORDERED: PHENYLEPHRINE-NS 100 MCG/ML 10 ML SYRINGE ONE (07:37)
[2021-03-24] MEDS ORDERED: Ondansetron PF 4 MG/2 ML Vial ONE (07:37)
[2021-03-24] MEDS ORDERED: PROPOFOL 200 MG/20 ML VIAL ONE (07:37)
[2021-03-24] MEDS ORDERED: Ketorolac Tromethamine 30 MG/ML VIAL ONE (07:37)
[2021-03-24] MEDS ORDERED: Dexamethasone 20 MG/5 ML VIAL ONE (07:37)
[2021-03-24] MEDS ORDERED: Bupivacaine 0.25% HCL 30 ML VIAL ONE (07:38)
[2021-03-24] MEDS ORDERED: Iothalamate Meglumine 60% 50 ML VIAL FS ONE (07:38)
[2021-03-24] MEDS ORDERED: Xylocaine 1% w/ Epi 1:100K 10 ML VIAL ONE (07:38)
[2021-03-24] MEDS ORDERED: Promethazine HCl 25 MG/ML VIAL IVPB PRN (10:56)
[2021-03-24] MEDS ORDERED: HYDROmorphone 2 MG/ML VIAL SLOW IVP PRN (10:56)
[2021-03-24] MEDS ORDERED: Promethazine HCl 25 MG/ML VIAL IM PRN (10:56)
[2021-03-24] MEDS ORDERED: Ondansetron HCl/PF 4 MG/2 ML Vial IVP PRN (10:56)
[2021-03-24] MEDS ORDERED: Ondansetron ODT 8 MG TAB SL PRN (11:33)
[2021-03-24] MEDS ORDERED: Ondansetron ODT 8 MG TAB PO PRN (11:33)
[2021-03-24] MEDS ORDERED: Hydrocodone-Acetamin 15 ML UDCUP PO PRN (11:33)
[2021-03-24] MEDS: Sodium Chloride 0.9% 1,000 ML IV SCH ×2 (13:01→20:18)
[2021-03-24] MEDS: Ketorolac Tromethamine 30 MG/ML VIAL IVP SCH ×3 (13:02→23:55)
[2021-03-24 14:38] LABS: #Lymphocytes 0.6 thou/uL (1.20-3.40); #Monocytes 0.1 thou/uL (0.11-0.59); #Neutrophils 7.8 thou/uL (1.40-6.50); %Eosinophils 0.1 % (0.0-10.0); %Lymphocytes 7.2 % (21.0-51.0); %Monocytes 1.6 % (0.0-10.0); Hemoglobin 7.8 g/dL (12.0-16.0); Mean Corpuscular HGB CONC 29.1 g/dL (32.0-36.0); Mean Corpuscular Hemoglobin 19.9 pg (27.0-31.0); Mean Corpuscular Volume 68.6 fL (78.0-98.0); Mean Platelet Volume 10.7 fL (7.4-10.4); Platelet Count 226 thou/uL (130-400); RBC Distribution Width 20.9 % (11.5-14.5); White Blood Cell (WBC) Count 8.6 thou/uL (4.8-10.8)
[2021-03-24 14:54] LABS: ALT (SGPT) 95 U/L (8-55); AST (SGOT) 202 U/L (5-34); Albumin 2.9 g/dL (3.5-5.0); Alkaline Phosphatase 70 U/L (40-110); Anion Gap 14 mmol/L (10-20); BUN (Urea Nitrogen) 7 mg/dL (9.8-20.1); Bilirubin, Total 0.4 mg/dL (0.2-1.2); Calc. Creatinine Clearance 120 mL/min (70-130); Calcium 8.5 mg/dL (7.8-10.44); Carbon Dioxide 19 mmol/L (22-29); Chloride 107 mmol/L (98-107); Globulin 3.8 g/dL (2.4-3.5); Glucose 159 mg/dL (70-105); Potassium 3.5 mmol/L (3.5-5.1); Protein, Total 6.7 g/dL (6.0-8.3); Sodium 136 mmol/L (136-145)
[2021-03-24 17:24] LABS: #Lymphocytes 0.5 thou/uL (1.20-3.40); #Monocytes 0.2 thou/uL (0.11-0.59); #Neutrophils 5.5 thou/uL (1.40-6.50); %Eosinophils 0.1 % (0.0-10.0); %Lymphocytes 7.8 % (21.0-51.0); %Monocytes 3.4 % (0.0-10.0); %Neutrophils 88.8 % (42.0-75.0); Hemoglobin 7.4 g/dL (12.0-16.0); Mean Corpuscular HGB CONC 29.7 g/dL (32.0-36.0); Mean Corpuscular Hemoglobin 20.3 pg (27.0-31.0); Mean Corpuscular Volume 68.4 fL (78.0-98.0); Mean Platelet Volume 9.9 fL (7.4-10.4); Platelet Count 220 thou/uL (130-400); RBC Distribution Width 20.6 % (11.5-14.5); Red Blood Cell (RBC) Count 3.66 mill/uL (4.20-5.40); White Blood Cell (WBC) Count 6.2 thou/uL (4.8-10.8)
[2021-03-24] MEDS: Pantoprazole 40 MG VIAL IVP SCH (21:39)
[2021-03-24] MEDS: Enoxaparin Sodium 40 MG/0.4 ML SYRINGE SC SCH (21:39)
[2021-03-25] MEDS: Sodium Chloride 0.9% 1,000 ML IV SCH (03:13)
[2021-03-25] MEDS: Ketorolac Tromethamine 30 MG/ML VIAL IVP SCH (05:35)
[2021-03-25 06:57] LABS: Hemoglobin 8.6 g/dL (12.0-16.0); Mean Corpuscular HGB CONC 29.6 g/dL (32.0-36.0); Mean Corpuscular Hemoglobin 20.6 pg (27.0-31.0); Mean Corpuscular Volume 69.6 fL (78.0-98.0); Mean Platelet Volume 9.4 fL (7.4-10.4); Platelet Count 290 thou/uL (130-400); RBC Distribution Width 21.4 % (11.5-14.5); Red Blood Cell (RBC) Count 4.16 mill/uL (4.20-5.40); White Blood Cell (WBC) Count 9.3 thou/uL (4.8-10.8)
[2021-03-25 06:58] LABS: ALT (SGPT) 117 U/L (8-55); AST (SGOT) 199 U/L (5-34); Alkaline Phosphatase 75 U/L (40-110); Anion Gap 14 mmol/L (10-20); BUN (Urea Nitrogen) 8 mg/dL (9.8-20.1); Bilirubin, Total 0.5 mg/dL (0.2-1.2); Calc. Creatinine Clearance 123 mL/min (70-130); Calcium 8.9 mg/dL (7.8-10.44); Carbon Dioxide 21 mmol/L (22-29); Chloride 108 mmol/L (98-107); Globulin 4.2 g/dL (2.4-3.5); Glucose 100 mg/dL (70-105); Potassium 3.4 mmol/L (3.5-5.1); Protein, Total 7.2 g/dL (6.0-8.3); Sodium 140 mmol/L (136-145)
[2021-03-25 08:38] LABS: #Lymphocytes 1.6 thou/uL (1.20-3.40); #Monocytes 0.8 thou/uL (0.11-0.59); #Neutrophils 6.9 thou/uL (1.40-6.50); %Basophils 0.1 % (0.0-1.0); %Eosinophils 0.2 % (0.0-10.0); %Lymphocytes 17.5 % (21.0-51.0); %Monocytes 8.5 % (0.0-10.0); %Neutrophils 73.6 % (42.0-75.0); Hypochromia MODERATE=16-30 cells (100X) (0-5/hpf); MDiff Complete? YES; Microcytosis MODERATE=15-30 cells (100X) (0-5/hpf); Ovalocytes MODERATE= 6-15 cells (100X) (0-1/hpf); Platelet Morphology Comment Appears Adequate; Polychromasia MODERATE = 3-4 cells (100X) (0-2/hpf)
[2021-03-25] MEDS: Scopolamine 1.5 mg/72 hour Patch TD SCH (09:18)
[2021-03-25] MEDS: HYDROcodone/Acetaminophen 5/325 mg Tablet PO SCH ×3 (13:02→19:58)
[2021-03-25] MEDS: Enoxaparin Sodium 40 MG/0.4 ML SYRINGE SC SCH (19:57)
[2021-03-26 07:01] LABS: #Eosinphils 0.1 thou/uL (0.0-0.7); #Lymphocytes 1.5 thou/uL (1.20-3.40); #Monocytes 0.6 thou/uL (0.11-0.59); #Neutrophils 4.4 thou/uL (1.40-6.50); %Basophils 0.7 % (0.0-1.0); %Eosinophils 1.2 % (0.0-10.0); %Monocytes 8.4 % (0.0-10.0); %Neutrophils 66.7 % (42.0-75.0); Hemoglobin 7.5 g/dL (12.0-16.0); Mean Corpuscular HGB CONC 28.8 g/dL (32.0-36.0); Mean Corpuscular Volume 69.4 fL (78.0-98.0); Mean Platelet Volume 9.4 fL (7.4-10.4); Platelet Count 295 thou/uL (130-400); RBC Distribution Width 21.3 % (11.5-14.5); Red Blood Cell (RBC) Count 3.74 mill/uL (4.20-5.40); White Blood Cell (WBC) Count 6.5 thou/uL (4.8-10.8)
[2021-03-26 07:08] LABS: ALT (SGPT) 154 U/L (8-55); AST (SGOT) 182 U/L (5-34); Albumin 2.7 g/dL (3.5-5.0); Alkaline Phosphatase 68 U/L (40-110); Anion Gap 11 mmol/L (10-20); BUN (Urea Nitrogen) 6 mg/dL (9.8-20.1); Bilirubin, Total 0.4 mg/dL (0.2-1.2); Calc. Creatinine Clearance 138 mL/min (70-130); Calcium 8.4 mg/dL (7.8-10.44); Carbon Dioxide 22 mmol/L (22-29); Chloride 108 mmol/L (98-107); Globulin 3.6 g/dL (2.4-3.5); Glucose 103 mg/dL (70-105); Potassium 3.2 mmol/L (3.5-5.1); Protein, Total 6.3 g/dL (6.0-8.3); Sodium 138 mmol/L (136-145)
[2021-03-26 08:04] LABS: Hypochromia SLIGHT = 6-15 cells (100X) (0-5/hpf); MDiff Complete? YES; Microcytosis MODERATE=15-30 cells (100X) (0-5/hpf); Ovalocytes SLIGHT = 2-5 cells (100X) (0-1/hpf); Platelet Morphology Comment Appears Adequate; Polychromasia SLIGHT = 2-3 cells (100X) (0-2/hpf)
[2021-03-26] MEDS: HYDROcodone/Acetaminophen 5/325 mg Tablet PO SCH ×4 (09:07→21:24)
[2021-03-26] MEDS ORDERED: Lactated Ringer's 1,000 ML IV SCH (13:00)
[2021-03-26] MEDS ORDERED: Iothalamate Meglumine 60% 50 ML VIAL FS ONE (14:26)
[2021-03-26] MEDS ORDERED: Indomethacin 50 MG SUPP ONE (14:26)
[2021-03-26] MEDS ORDERED: Fentanyl 100 MCG/2 ML VIAL ONE ×2 (14:40→17:42)
[2021-03-26] MEDS ORDERED: Dexamethasone 20 MG/5 ML VIAL ONE (14:45)
[2021-03-26] MEDS ORDERED: Glycopyrrolate 0.2 MG/ML 5 ML SYRINGE ONE (14:45)
[2021-03-26] MEDS ORDERED: Rocuronium Bromide 10 MG/ML (10ML VIAL) ONE (14:45)
[2021-03-26] MEDS ORDERED: PROPOFOL 200 MG/20 ML VIAL ONE (14:45)
[2021-03-26] MEDS ORDERED: Ondansetron PF 4 MG/2 ML Vial ONE ×2 (14:45→17:23)
[2021-03-26] MEDS ORDERED: Lidocaine 1% PF 5 ML VIAL ONE (14:45)
[2021-03-26] MEDS ORDERED: Levofloxacin 500 mg/D5W 100 ml Premix Bag ONE (15:18)
[2021-03-26] MEDS: Lactated Ringer's 1,000 ML IV SCH ×2 (15:41→18:35)
[2021-03-27 06:34] LABS: #Lymphocytes 1.2 thou/uL (1.20-3.40); #Monocytes 0.4 thou/uL (0.11-0.59); #Neutrophils 4.6 thou/uL (1.40-6.50); %Basophils 0.3 % (0.0-1.0); %Eosinophils 0.4 % (0.0-10.0); %Lymphocytes 19.7 % (21.0-51.0); %Neutrophils 72.6 % (42.0-75.0); Hemoglobin 7.9 g/dL (12.0-16.0); Mean Corpuscular HGB CONC 29.4 g/dL (32.0-36.0); Mean Corpuscular Hemoglobin 20.3 pg (27.0-31.0); Mean Corpuscular Volume 69.1 fL (78.0-98.0); Platelet Count 324 thou/uL (130-400); RBC Distribution Width 21.3 % (11.5-14.5); White Blood Cell (WBC) Count 6.3 thou/uL (4.8-10.8)
[2021-03-27 06:44] LABS: ALT (SGPT) 235 U/L (8-55); AST (SGOT) 382 U/L (5-34); Albumin 2.7 g/dL (3.5-5.0); Alkaline Phosphatase 261 U/L (40-110); Anion Gap 13 mmol/L (10-20); BUN (Urea Nitrogen) 6 mg/dL (9.8-20.1); Bilirubin, Total 1.3 mg/dL (0.2-1.2); Calc. Creatinine Clearance 136 mL/min (70-130); Calcium 8.6 mg/dL (7.8-10.44); Carbon Dioxide 23 mmol/L (22-29); Chloride 107 mmol/L (98-107); Globulin 3.6 g/dL (2.4-3.5); Glucose 89 mg/dL (70-105); Potassium 3.6 mmol/L (3.5-5.1); Protein, Total 6.3 g/dL (6.0-8.3); Sodium 139 mmol/L (136-145)
[2021-03-27] MEDS: HYDROcodone/Acetaminophen 5/325 mg Tablet PO SCH ×2 (10:23→14:24)
[2021-03-27 12:58] VITALS: BP 138/78; TEMP 98.3
== END 2021-03-27 15:15 | disposition home or self-care (01) | DRG 417 ==
LOC: SJJU 17:42
PROVIDERS: ADMIT Specialist; ATTEND Specialist
PROC: 30233N1 Transfusion of Nonautologous Red Blood Cells into Peripheral Vein, Percutaneous Approach (ICD-10-PCS; 2021-03-21)
PROC: 0DJ08ZZ Inspection of Upper Intestinal Tract, Via Natural or Artificial Opening Endoscopic (ICD-10-PCS; 2021-03-23)
PROC: 0DJD8ZZ Inspection of Lower Intestinal Tract, Via Natural or Artificial Opening Endoscopic (ICD-10-PCS; 2021-03-23)
PROC: 0FT44ZZ Resection of Gallbladder, Percutaneous Endoscopic Approach (ICD-10-PCS; principal; 2021-03-24)
PROC: 0BUT4JZ Supplement Diaphragm with Synthetic Substitute, Percutaneous Endoscopic Approach (ICD-10-PCS; 2021-03-24)
PROC: 0DV44ZZ Restriction of Esophagogastric Junction, Percutaneous Endoscopic Approach (ICD-10-PCS; 2021-03-24)
PROC: 0DQ64ZZ Repair Stomach, Percutaneous Endoscopic Approach (ICD-10-PCS; 2021-03-24)
PROC: BF5C2Z0 Other Imaging of Hepatobiliary System, All using Fluorescing Agent, Intraoperative (ICD-10-PCS; 2021-03-24)
PROC: 0FC98ZZ Extirpation of Matter from Common Bile Duct, Via Natural or Artificial Opening Endoscopic (ICD-10-PCS; 2021-03-26)
DX: K80.64 Calculus of gallbladder and bile duct with chronic cholecystitis without obstruction (principal); K25.4 Chronic or unspecified gastric ulcer with hemorrhage; Q43.8 Other specified congenital malformations of intestine; Z20.822 Contact with and (suspected) exposure to COVID-19; K44.9 Diaphragmatic hernia without obstruction or gangrene; K25.9 Gastric ulcer, unspecified as acute or chronic, without hemorrhage or perforation; K64.8 Other hemorrhoids; D50.9 Iron deficiency anemia, unspecified; Z86.16 Personal history of COVID-19; Z87.01 Personal history of pneumonia (recurrent); Z79.899 Other long term (current) drug therapy; Z88.8 Allergy status to other drugs, medicaments and biological substances; Z98.51 Tubal ligation status
CPT/HCPCS: 36415; 36430; 47532; 74181; 74330; 80053; 83690; 85025; 86850; 86900; 86901; 88304; 93005; 93010; C1713; C1776; C1781; C9113; J1100; J1170; J1650; J1885; J1956; J2250; J2270; J2370; J2405; J2704; J2765; J3010; J7050; P9016; Q9961-U8; S0020

== ENCOUNTER 2021-03-30 12:26 | Inpatient (IN) | payer BC ==
[2021-03-30] MEDS ORDERED: hydrALAZINE 20 MG/ML VIAL SLOW IVP PRN (13:51)
[2021-03-30] MEDS ORDERED: Ondansetron ODT 4 MG TAB PO PRN (13:51)
[2021-03-30] MEDS ORDERED: Ondansetron PF 4 MG/2 ML Vial IVP PRN (13:51)
[2021-03-30] MEDS ORDERED: Lactated Ringer's 1,000 ML IV SCH ×3 (14:00→15:45)
[2021-03-30] MEDS ORDERED: Piperacillin/Tazobactam 4.5 GM in Sodium Chloride 0.9% 100 ML IVPB SCH (14:00)
[2021-03-30] MEDS ORDERED: Ketorolac Tromethamine 30 MG/ML VIAL IVP SCH (14:00)
[2021-03-30] MEDS ORDERED: Morphine 4 MG/ML VIAL ONE (14:02)
[2021-03-30] MEDS ORDERED: Morphine 4 MG/ML VIAL SLOW IVP PRN (14:11)
[2021-03-30] MEDS: Lactated Ringer's 1,000 ML IV SCH ×2 (14:17→21:19)
[2021-03-30] MEDS: Morphine 4 MG/ML VIAL SLOW IVP PRN ×2 (14:17→22:08)
[2021-03-30] MEDS ORDERED: Pantoprazole 40 MG VIAL IVP SCH (14:30)
[2021-03-30] MEDS ORDERED: Piperacillin/Tazobactam 3.375 GM in Sodium Chloride 0.9% 100 ML IVPB SCH ×2 (14:30→20:00)
[2021-03-30 14:53] LABS: #Lymphocytes 0.8 thou/uL (1.20-3.40); #Monocytes 0.8 thou/uL (0.11-0.59); #Neutrophils 13.3 thou/uL (1.40-6.50); %Basophils 0.3 % (0.0-1.0); %Eosinophils 0.1 % (0.0-10.0); %Lymphocytes 5.5 % (21.0-51.0); %Monocytes 5.6 % (0.0-10.0); %Neutrophils 88.5 % (42.0-75.0); Hemoglobin 8.4 g/dL (12.0-16.0); Mean Corpuscular HGB CONC 29.5 g/dL (32.0-36.0); Mean Corpuscular Hemoglobin 20.2 pg (27.0-31.0); Mean Corpuscular Volume 68.3 fL (78.0-98.0); Mean Platelet Volume 9.3 fL (7.4-10.4); Platelet Count 310 thou/uL (130-400); RBC Distribution Width 21.7 % (11.5-14.5); Red Blood Cell (RBC) Count 4.18 mill/uL (4.20-5.40)
[2021-03-30 15:02] LABS: ALT (SGPT) 80 U/L (8-55); AST (SGOT) 28 U/L (5-34); Alkaline Phosphatase 177 U/L (40-110); Anion Gap 16 mmol/L (10-20); BUN (Urea Nitrogen) 5 mg/dL (9.8-20.1); Bilirubin, Total 0.8 mg/dL (0.2-1.2); Calc. Creatinine Clearance 0 mL/min (70-130); Calcium 8.7 mg/dL (7.8-10.44); Carbon Dioxide 20 mmol/L (22-29); Chloride 105 mmol/L (98-107); Globulin 3.8 g/dL (2.4-3.5); Glucose 147 mg/dL (70-105); Lipase 80 U/L (8-78); Potassium 3.2 mmol/L (3.5-5.1); Protein, Total 6.8 g/dL (6.0-8.3); Sodium 138 mmol/L (136-145)
[2021-03-30] MEDS ORDERED: Heparin 25,000 units/D5W 500 ML IVPB SCH (15:15)
[2021-03-30] MEDS ORDERED: Heparin 10,000 UNITS/ 10 ML VIAL SLOW IVP SCH (15:15)
[2021-03-30 15:20] VITALS: BMI 27.3
[2021-03-30 15:45] LABS: SARS-CoV-2 NAA Rapid Test Not Detected (NotDetected)
[2021-03-30] MEDS: Piperacillin/Tazobactam 4.5 GM in Sodium Chloride 0.9% 100 ML IVPB SCH ×2 (15:49→22:08)
[2021-03-30 16:14] LABS: Hemoglobin 8.6 g/dL (12.0-16.0); Platelet Count 265 thou/uL (130-400)
[2021-03-30 16:15] LABS: Lactic Acid 1.2 mmol/L (0.5-2.2)
[2021-03-30 16:37] LABS: INR-International Normal Ratio 1.3
[2021-03-30 16:45] LABS: D-Dimer Test 18.99 *mcg/mL (0.27-0.43)
[2021-03-30] MEDS ORDERED: Enoxaparin Sodium 40 MG/0.4 ML SYRINGE SC SCH (21:00)
[2021-03-30 22:09] LABS: PTT 146.4 sec (22.9-36.1)
[2021-03-31] MEDS: Morphine 4 MG/ML VIAL SLOW IVP PRN ×3 (00:11→14:22)
[2021-03-31] MEDS: Ketorolac Tromethamine 30 MG/ML VIAL IVP PRN ×2 (00:12→13:14)
[2021-03-31 02:23] LABS: #Basophils 0.1 thou/uL (0.0-0.2); #Eosinphils 0.1 thou/uL (0.0-0.7); #Lymphocytes 1.3 thou/uL (1.20-3.40); #Monocytes 0.9 thou/uL (0.11-0.59); #Neutrophils 7.8 thou/uL (1.40-6.50); %Basophils 0.6 % (0.0-1.0); %Eosinophils 0.7 % (0.0-10.0); %Lymphocytes 12.9 % (21.0-51.0); %Monocytes 8.8 % (0.0-10.0); %Neutrophils 76.9 % (42.0-75.0); Hemoglobin 7.4 g/dL (12.0-16.0); Mean Corpuscular Hemoglobin 19.9 pg (27.0-31.0); Mean Corpuscular Volume 68.7 fL (78.0-98.0); Mean Platelet Volume 10.3 fL (7.4-10.4); Platelet Count 242 thou/uL (130-400); RBC Distribution Width 21.8 % (11.5-14.5); Red Blood Cell (RBC) Count 3.72 mill/uL (4.20-5.40); White Blood Cell (WBC) Count 10.1 thou/uL (4.8-10.8)
[2021-03-31 02:40] LABS: ALT (SGPT) 58 U/L (8-55); AST (SGOT) 20 U/L (5-34); Albumin 2.4 g/dL (3.5-5.0); Alkaline Phosphatase 136 U/L (40-110); Anion Gap 11 mmol/L (10-20); BUN (Urea Nitrogen) 5 mg/dL (9.8-20.1); Bilirubin, Total 0.6 mg/dL (0.2-1.2); Calc. Creatinine Clearance 137 mL/min (70-130); Calcium 8.1 mg/dL (7.8-10.44); Carbon Dioxide 24 mmol/L (22-29); Chloride 106 mmol/L (98-107); Globulin 3.2 g/dL (2.4-3.5); Glucose 113 mg/dL (70-105); Lipase 72 U/L (8-78); Protein, Total 5.6 g/dL (6.0-8.3); Sodium 138 mmol/L (136-145)
[2021-03-31] MEDS: Lactated Ringer's 1,000 ML IV SCH ×4 (04:29→20:22)
[2021-03-31] MEDS: Piperacillin/Tazobactam 4.5 GM in Sodium Chloride 0.9% 100 ML IVPB SCH ×3 (06:22→22:36)
[2021-03-31] MEDS: Pantoprazole 40 MG VIAL IVP SCH (09:05)
[2021-03-31] MEDS ORDERED: Enoxaparin Sodium 80 MG/0.8 ML SYRINGE SC SCH (09:45)
[2021-03-31] MEDS ORDERED: Potassium Chloride 20 MEQ TAB PO SCH (14:00)
[2021-03-31] MEDS ORDERED: FLU VACC QS2021-22(6MOS UP)/PF 60 MCG/0.5 ML SYRINGE IM ONE (15:45)
[2021-03-31] MEDS: Enoxaparin Sodium 80 MG/0.8 ML SYRINGE SC SCH (20:22)
[2021-04-01] MEDS: Piperacillin/Tazobactam 4.5 GM in Sodium Chloride 0.9% 100 ML IVPB SCH (06:05)
[2021-04-01] MEDS: Lactated Ringer's 1,000 ML IV SCH (06:10)
[2021-04-01 07:20] LABS: #Eosinphils 0.1 thou/uL (0.0-0.7); #Lymphocytes 1.6 thou/uL (1.20-3.40); #Monocytes 0.6 thou/uL (0.11-0.59); #Neutrophils 4.1 thou/uL (1.40-6.50); %Basophils 0.6 % (0.0-1.0); %Eosinophils 2.1 % (0.0-10.0); %Monocytes 9.6 % (0.0-10.0); %Neutrophils 63.6 % (42.0-75.0); Hemoglobin 7.5 g/dL (12.0-16.0); Mean Corpuscular HGB CONC 29.6 g/dL (32.0-36.0); Mean Corpuscular Hemoglobin 20.3 pg (27.0-31.0); Mean Corpuscular Volume 68.5 fL (78.0-98.0); Platelet Count 232 thou/uL (130-400); RBC Distribution Width 21.6 % (11.5-14.5); Red Blood Cell (RBC) Count 3.69 mill/uL (4.20-5.40); White Blood Cell (WBC) Count 6.5 thou/uL (4.8-10.8)
[2021-04-01 07:32] LABS: Anion Gap 13 mmol/L (10-20); BUN (Urea Nitrogen) Less than 4 mg/dL (9.8-20.1); Calc. Creatinine Clearance 142 mL/min (70-130); Calcium 8.3 mg/dL (7.8-10.44); Carbon Dioxide 24 mmol/L (22-29); Chloride 108 mmol/L (98-107); Glucose 93 mg/dL (70-105); Potassium 3.5 mmol/L (3.5-5.1); Sodium 141 mmol/L (136-145)
[2021-04-01 08:09] LABS: Bite Cells SLIGHT = 2-5 cells (100X) (0-1/hpf); Hypochromia MODERATE=16-30 cells (100X) (0-5/hpf); MDiff Complete? YES; Microcytosis MODERATE=15-30 cells (100X) (0-5/hpf); Ovalocytes SLIGHT = 2-5 cells (100X) (0-1/hpf); Platelet Morphology Comment Appears Adequate; Polychromasia SLIGHT = 2-3 cells (100X) (0-2/hpf)
[2021-04-01] MEDS: Pantoprazole 40 MG VIAL IVP SCH (09:09)
[2021-04-01] MEDS: Enoxaparin Sodium 80 MG/0.8 ML SYRINGE SC SCH (09:09)
[2021-04-01] MEDS ORDERED: Ibuprofen 600 MG TAB PO PRN (10:51)
[2021-04-01 13:15] LABS: Factor VIII Test 296.9 % ACTIVE (56-157)
[2021-04-01 14:56] LABS: HEX PHOS LA Tube 1 52.5 SEC; HEX PHOS LA Tube 2 44.5 SEC; Protein C Activity 73 % (78-152)
[2021-04-01] MEDS: traMADol HCl 50 MG TAB PO PRN ×2 (15:06→21:22)
[2021-04-01 15:14] LABS: Platelet Count 243 thou/uL (130-400)
[2021-04-01] MEDS ORDERED: Morphine 4 MG/ML VIAL ONE (17:05)
[2021-04-01] MEDS: Rivaroxaban 15 MG TAB PO SCH (21:17)
[2021-04-02] MEDS: Ferrous Sulfate 325 MG TAB PO SCH (09:04)
[2021-04-02] MEDS: Rivaroxaban 15 MG TAB PO SCH ×2 (09:05→20:41)
[2021-04-02] MEDS: traMADol HCl 50 MG TAB PO PRN (09:06)
[2021-04-02] MEDS: Morphine 4 MG/ML VIAL SLOW IVP PRN ×2 (10:08→15:00)
[2021-04-02 11:24] LABS: Anion Gap 12 mmol/L (10-20); BUN (Urea Nitrogen) Less than 4 mg/dL (9.8-20.1); Calc. Creatinine Clearance 144 mL/min (70-130); Calcium 8.6 mg/dL (7.8-10.44); Carbon Dioxide 23 mmol/L (22-29); Chloride 106 mmol/L (98-107); Glucose 110 mg/dL (70-105); Potassium 3.7 mmol/L (3.5-5.1); Sodium 137 mmol/L (136-145)
[2021-04-02 11:33] LABS: #Eosinphils 0.1 thou/uL (0.0-0.7); #Lymphocytes 1.3 thou/uL (1.20-3.40); #Monocytes 0.5 thou/uL (0.11-0.59); #Neutrophils 5.4 thou/uL (1.40-6.50); %Basophils 0.6 % (0.0-1.0); %Eosinophils 1.8 % (0.0-10.0); %Lymphocytes 17.2 % (21.0-51.0); %Monocytes 7.2 % (0.0-10.0); %Neutrophils 73.2 % (42.0-75.0); Mean Corpuscular HGB CONC 30.3 g/dL (32.0-36.0); Mean Corpuscular Hemoglobin 20.7 pg (27.0-31.0); Mean Corpuscular Volume 68.5 fL (78.0-98.0); Platelet Count 226 thou/uL (130-400); RBC Distribution Width 21.5 % (11.5-14.5); Red Blood Cell (RBC) Count 3.86 mill/uL (4.20-5.40); White Blood Cell (WBC) Count 7.4 thou/uL (4.8-10.8)
[2021-04-03 06:03] LABS: #Eosinphils 0.2 thou/uL (0.0-0.7); #Lymphocytes 1.4 thou/uL (1.20-3.40); #Monocytes 0.6 thou/uL (0.11-0.59); #Neutrophils 3.4 thou/uL (1.40-6.50); %Basophils 0.7 % (0.0-1.0); %Eosinophils 3.6 % (0.0-10.0); %Lymphocytes 24.1 % (21.0-51.0); %Monocytes 10.7 % (0.0-10.0); %Neutrophils 60.8 % (42.0-75.0); Hemoglobin 7.5 g/dL (12.0-16.0); Mean Corpuscular HGB CONC 29.2 g/dL (32.0-36.0); Mean Corpuscular Hemoglobin 20.3 pg (27.0-31.0); Mean Corpuscular Volume 69.3 fL (78.0-98.0); Mean Platelet Volume 10.8 fL (7.4-10.4); Platelet Count 228 thou/uL (130-400); RBC Distribution Width 21.8 % (11.5-14.5); Red Blood Cell (RBC) Count 3.72 mill/uL (4.20-5.40); White Blood Cell (WBC) Count 5.6 thou/uL (4.8-10.8)
[2021-04-03 06:24] LABS: Anion Gap 11 mmol/L (10-20); BUN (Urea Nitrogen) Less than 4 mg/dL (9.8-20.1); Calc. Creatinine Clearance 150 mL/min (70-130); Calcium 8.5 mg/dL (7.8-10.44); Carbon Dioxide 25 mmol/L (22-29); Chloride 105 mmol/L (98-107); Glucose 97 mg/dL (70-105); Potassium 3.6 mmol/L (3.5-5.1); Sodium 137 mmol/L (136-145)
[2021-04-03] MEDS: Rivaroxaban 15 MG TAB PO SCH (08:10)
[2021-04-03] MEDS: Ferrous Sulfate 325 MG TAB PO SCH (08:10)
[2021-04-03 08:20] VITALS: BP 135/76; TEMP 98.5
[2021-04-07 16:52] LABS: Cardiolipin IgA Ab 3.3 APL-U/mL (<14 Negative); Cardiolipin IgG Ab 1.4 GPL-U/mL (<10 Negative); EliA APS New Method **** NEW METHOD ****
== END 2021-04-03 11:32 | disposition home or self-care (01) | DRG 443 ==
LOC: T4-A 13:01
PROVIDERS: ADMIT Specialist; ATTEND Specialist
DX: I81 Portal vein thrombosis (principal); Z20.822 Contact with and (suspected) exposure to COVID-19; D73.5 Infarction of spleen; K44.9 Diaphragmatic hernia without obstruction or gangrene; Z28.21 Immunization not carried out because of patient refusal; Z88.6 Allergy status to analgesic agent; Z90.49 Acquired absence of other specified parts of digestive tract; Z98.890 Other specified postprocedural states; Z79.899 Other long term (current) drug therapy
CPT/HCPCS: 36415; 74177; 80048; 80053; 83090; 83605; 83690; 85025; 85240; 85300; 85303; 85305; 85307; 85379; 85598; 85730; 86147; 86850; 86900; 86901; C9113; J1644; J1650; J1885; J2270; J2543; J3490; J7120; Q0162; U0002

== ENCOUNTER 2021-08-09 09:04 | Outpatient (CLI) | payer BC | END 2021-08-09 09:05 | disposition home or self-care (01) | LOC: BICCT 09:04 | PROVIDERS: ATTEND Specialist | DX: I82.890 Acute embolism and thrombosis of other specified veins (principal); R10.9 Unspecified abdominal pain; J90 Pleural effusion, not elsewhere classified; R18.8 Other ascites; R16.1 Splenomegaly, not elsewhere classified; D73.5 Infarction of spleen; K63.89 Other specified diseases of intestine; D25.9 Leiomyoma of uterus, unspecified; Z98.890 Other specified postprocedural states | CPT/HCPCS: 74160; 74177 ==

== ENCOUNTER 2022-05-08 13:27 | Inpatient (IN) | payer BC, SELFPAY ==
[2022-05-08] MEDS ORDERED: Cefepime 2 GM VIAL ONE (13:58)
[2022-05-08] MEDS ORDERED: Pantoprazole 40 MG VIAL ONE (13:58)
[2022-05-08 14:00] LABS: #Basophils 0.1 thou/uL (0.0-0.2); #Lymphocytes 2.4 thou/uL (1.20-3.40); #Monocytes 0.6 thou/uL (0.11-0.59); #Neutrophils 10.3 thou/uL (1.40-6.50); %Basophils 0.4 % (0.0-1.0); %Eosinophils 0.1 % (0.0-10.0); %Lymphocytes 17.7 % (21.0-51.0); %Monocytes 4.8 % (0.0-10.0); %Neutrophils 77.1 % (42.0-75.0); Hemoglobin 6.3 g/dL (12.0-16.0); Mean Corpuscular HGB CONC 32.3 g/dL (32.0-36.0); Mean Corpuscular Hemoglobin 28.8 pg (27.0-31.0); Mean Corpuscular Volume 89.3 fl (78.0-98.0); Mean Platelet Volume 7.3 fL (7.4-10.4); Platelet Count 216 10x3/uL (130-400); RBC Distribution Width 16.4 % (11.5-14.5); Red Blood Cell (RBC) Count 2.18 mill/uL (4.20-5.40); White Blood Cell (WBC) Count 13.4 10x3/uL (4.8-10.8)
[2022-05-08] MEDS ORDERED: Octreotide Acetate 1,250 MCG in Sodium Chloride 0.9% 250 ML 250 ML IVPB SCH (14:00)
[2022-05-08 14:11] LABS: INR-International Normal Ratio 1.3; PTT 29.9 sec (22.9-36.1); Prothrombin Time 16.6 sec (12.0-14.7)
[2022-05-08] MEDS ORDERED: Ondansetron PF 4 MG/2 ML Vial ONE ×2 (14:22→16:09)
[2022-05-08 14:26] LABS: ALT (SGPT) 19 U/L (8-55); AST (SGOT) 15 U/L (5-34); Albumin 2.9 g/dL (3.5-5.0); Alkaline Phosphatase 56 U/L (40-110); Anion Gap 13 mmol/L (10-20); BUN (Urea Nitrogen) 31 mg/dL (9.8-20.1); Bilirubin, Total 0.5 mg/dL (0.2-1.2); Calc. Creatinine Clearance 0 mL/min (70-130); Calcium 7.9 mg/dL (7.8-10.44); Carbon Dioxide 18 mmol/L (22-29); Chloride 114 mmol/L (98-107); Estimated GFR 104; Globulin 2.4 g/dL (2.4-3.5); Glucose 180 mg/dL (70-105); Potassium 4.1 mmol/L (3.5-5.1); Protein, Total 5.3 g/dL (6.0-8.3); Sodium 141 mmol/L (136-145)
[2022-05-08 18:21] LABS: Lactic Acid 1.1 mmol/L (0.5-2.2)
[2022-05-08] MEDS: Pantoprazole 40 MG VIAL IVP SCH (22:46)
[2022-05-08] MEDS: Ondansetron ODT 4 MG TAB PO PRN (22:46)
[2022-05-09 04:08] VITALS: BMI 23.6
[2022-05-09 06:28] LABS: SARS-CoV-2 NAA Rapid Test Not Detected (NotDetected)
[2022-05-09] MEDS ORDERED: Iron, Sodium Ferric Gluconate 250 MG in Sodium Chloride 0.9% 250 ML 250 ML IVPB SCH (08:00)
[2022-05-09] MEDS ORDERED: Iron Polysaccharides Complex 150 MG CAP PO SCH (08:00)
[2022-05-09 09:16] LABS: Bacteria/HPF Rare-Few HPF (None Seen); Bilirubin Negative (Negative); Blood, Urine 2+ (Negative); CAUTI Indications for Culture Dysuria,urgency,freq; Clarity Clear (Clear); Glucose, Urine (Dipstick) Normal (Negative); Ketone, Urine Negative (Negative); Leukocyte 75 Leu/uL (Negative); Nitrite Negative (Negative); Protein, Urine (Dipstick) Negative (Neg-Trace); RBC/HPF 0-3 HPF (0-3); Specific Gravity, Urine 1.029 (1.002-1.036); Urobilinogen Normal mg/dL (Less than 2); pH, Urine 5.5 (5.0-9.0)
[2022-05-09 09:17] LABS: Urine Culture Reflex No No
[2022-05-09] MEDS ORDERED: Iopamidol-370 76% 500 ML 1 ML ONE (11:06)
[2022-05-09] MEDS ORDERED: Lidocaine 1% PF 5 ML VIAL ONE (11:52)
[2022-05-09] MEDS ORDERED: PROPOFOL 200 MG/20 ML VIAL ONE (11:52)
[2022-05-09 13:59] LABS: Reticulocyte Count 6.5 % (0.5-1.5)
[2022-05-09 14:20] LABS: Anion Gap 11 mmol/L (10-20); BUN (Urea Nitrogen) 19 mg/dL (9.8-20.1); Calc. Creatinine Clearance 115 mL/min (70-130); Calcium 7.9 mg/dL (7.8-10.44); Carbon Dioxide 18 mmol/L (22-29); Chloride 117 mmol/L (98-107); Estimated GFR 105; Glucose 130 mg/dL (70-105); Potassium 3.9 mmol/L (3.5-5.1); Sodium 142 mmol/L (136-145)
[2022-05-09 14:22] LABS: Iron 21 ug/dL (50-170); Iron Binding Capacity, Total 320 mcg/dL (265-497)
[2022-05-09 14:41] LABS: #Basophils 0.1 thou/uL (0.0-0.2); #Lymphocytes 1.8 thou/uL (1.20-3.40); #Monocytes 0.5 thou/uL (0.11-0.59); %Basophils 0.9 % (0.0-1.0); %Eosinophils 0.5 % (0.0-10.0); %Lymphocytes 21.1 % (21.0-51.0); %Monocytes 6.3 % (0.0-10.0); %Neutrophils 71.2 % (42.0-75.0); Hemoglobin 8.8 g/dL (12.0-16.0); Mean Corpuscular HGB CONC 31.1 g/dL (32.0-36.0); Mean Corpuscular Hemoglobin 28.5 pg (27.0-31.0); Mean Corpuscular Volume 91.5 fl (78.0-98.0); Platelet Count 127 10x3/uL (130-400); RBC Distribution Width 15.7 % (11.5-14.5); White Blood Cell (WBC) Count 8.4 10x3/uL (4.8-10.8)
[2022-05-09] MEDS: Pantoprazole 40 MG VIAL IVP SCH ×2 (16:52→22:20)
[2022-05-09] MEDS: Metoclopramide HCl 10 MG/2 ML VIAL IVP SCH ×2 (17:18→22:19)
[2022-05-10 05:28] LABS: #Basophils 0.1 thou/uL (0.0-0.2); #Eosinphils 0.1 thou/uL (0.0-0.7); #Lymphocytes 1.3 thou/uL (1.20-3.40); #Monocytes 0.4 thou/uL (0.11-0.59); #Neutrophils 3.3 thou/uL (1.40-6.50); %Eosinophils 1.9 % (0.0-10.0); %Lymphocytes 25.7 % (21.0-51.0); %Monocytes 8.4 % (0.0-10.0); %Neutrophils 63.1 % (42.0-75.0); Hemoglobin 7.8 g/dL (12.0-16.0); Mean Corpuscular HGB CONC 32.7 g/dL (32.0-36.0); Mean Corpuscular Hemoglobin 29.7 pg (27.0-31.0); Mean Corpuscular Volume 90.7 fl (78.0-98.0); Mean Platelet Volume 7.2 fL (7.4-10.4); Platelet Count 90 10x3/uL (130-400); RBC Distribution Width 15.9 % (11.5-14.5); Red Blood Cell (RBC) Count 2.62 mill/uL (4.20-5.40); White Blood Cell (WBC) Count 5.2 10x3/uL (4.8-10.8)
[2022-05-10 05:46] LABS: Anion Gap 8 mmol/L (10-20); BUN (Urea Nitrogen) 13 mg/dL (9.8-20.1); Calc. Creatinine Clearance 121 mL/min (70-130); Calcium 8.1 mg/dL (7.8-10.44); Carbon Dioxide 23 mmol/L (22-29); Chloride 117 mmol/L (98-107); Estimated GFR 106; Glucose 114 mg/dL (70-105); Potassium 3.7 mmol/L (3.5-5.1); Sodium 144 mmol/L (136-145)
[2022-05-10] MEDS: Metoclopramide HCl 10 MG/2 ML VIAL IVP SCH ×3 (06:38→21:25)
[2022-05-10] MEDS ORDERED: PROPOFOL 200 MG/20 ML VIAL ONE (09:57)
[2022-05-10] MEDS ORDERED: Lidocaine 1% PF 5 ML VIAL ONE (09:57)
[2022-05-10] MEDS ORDERED: PHENYLEPHRINE-NS 100 MCG/ML 10 ML SYRINGE ONE (09:57)
[2022-05-10 11:38] LABS: Factor VIII Test 385.5 % ACTIVE (56-157)
[2022-05-10] MEDS: Octreotide Acetate 1,250 MCG in Sodium Chloride 0.9% 250 ML 250 ML IVPB SCH ×2 (13:20→13:23)
[2022-05-10] MEDS: Pantoprazole 40 MG VIAL IVP SCH ×2 (13:21→21:24)
[2022-05-10] MEDS: Ferrous Sulfate 325 MG TAB PO SCH (13:21)
[2022-05-10 13:54] LABS: HBCM Index 0.09 S/CO (0-0.79); HBSAg Index 0.38 S/CO (0-0.99); Hep A IgM AB Non-Reactive (NonReactive); Hep A IgM S/CO 0.16 S/CO (0-0.79); Hep C IgG Ab Non-Reactive (NonReactive); Hep C Index 0.04 S/CO (0-0.79); Hepatitis B Core IgM Abs Non-Reactive (NonReactive)
[2022-05-10 14:55] LABS: Hep B Surf Ag NonReactive S/CO (NonReactive)
[2022-05-11] MEDS: Metoclopramide HCl 10 MG/2 ML VIAL IVP SCH (06:05)
[2022-05-11 07:55] LABS: #Eosinphils 0.1 thou/uL (0.0-0.7); #Lymphocytes 1.5 thou/uL (1.20-3.40); #Monocytes 0.5 thou/uL (0.11-0.59); #Neutrophils 3.2 thou/uL (1.40-6.50); %Basophils 0.7 % (0.0-1.0); %Eosinophils 2.6 % (0.0-10.0); %Lymphocytes 27.1 % (21.0-51.0); %Monocytes 9.8 % (0.0-10.0); %Neutrophils 59.8 % (42.0-75.0); Hemoglobin 8.8 g/dL (12.0-16.0); Mean Corpuscular HGB CONC 31.1 g/dL (32.0-36.0); Mean Corpuscular Hemoglobin 29.1 pg (27.0-31.0); Mean Corpuscular Volume 93.6 fl (78.0-98.0); Mean Platelet Volume 7.4 fL (7.4-10.4); Platelet Count 105 10x3/uL (130-400); RBC Distribution Width 16.4 % (11.5-14.5); Red Blood Cell (RBC) Count 3.03 mill/uL (4.20-5.40); White Blood Cell (WBC) Count 5.4 10x3/uL (4.8-10.8)
[2022-05-11 08:18] LABS: Anion Gap 13 mmol/L (10-20); BUN (Urea Nitrogen) 7 mg/dL (9.8-20.1); Calc. Creatinine Clearance 121 mL/min (70-130); Carbon Dioxide 14 mmol/L (22-29); Chloride 116 mmol/L (98-107); Estimated GFR 106; Glucose 105 mg/dL (70-105); Potassium 3.8 mmol/L (3.5-5.1); Sodium 139 mmol/L (136-145)
[2022-05-11] MEDS ORDERED: Iopamidol-370 76% 500 ML 1 ML ONE (09:17)
[2022-05-11] MEDS ORDERED: Lidocaine 1% PF 5 ML VIAL ONE (09:59)
[2022-05-11] MEDS ORDERED: PROPOFOL 200 MG/20 ML VIAL ONE (09:59)
[2022-05-11] MEDS ORDERED: Promethazine HCl 25 MG/ML VIAL IM PRN (10:43)
[2022-05-11] MEDS ORDERED: HYDROmorphone 2 MG/ML VIAL SLOW IVP PRN (10:43)
[2022-05-11] MEDS ORDERED: Meperidine HCl/PF 25 MG/ML VIAL SLOW IVP PRN (10:43)
[2022-05-11] MEDS ORDERED: Ondansetron HCl/PF 4 MG/2 ML Vial IVP PRN (10:43)
[2022-05-11] MEDS ORDERED: Morphine Sulfate 2 MG/ML SYRINGE SLOW IVP PRN (10:43)
[2022-05-11] MEDS ORDERED: FENTANYL 50 MCG/ML 1 ML VIAL ONE (10:54)
[2022-05-11] MEDS ORDERED: Pantoprazole 40 MG VIAL IVP SCH (12:00)
[2022-05-11] MEDS ORDERED: Ferrous Sulfate 325 MG TAB PO SCH (12:00)
[2022-05-11] MEDS: Ferrous Sulfate 325 MG TAB PO SCH (12:08)
[2022-05-11] MEDS: Pantoprazole 40 MG VIAL IVP SCH ×2 (12:08→20:15)
[2022-05-11] MEDS: Lidocaine 4% Patch TD SCH (14:21)
[2022-05-11] MEDS: Octreotide Acetate 1,250 MCG in Sodium Chloride 0.9% 250 ML 250 ML IVPB SCH (17:52)
[2022-05-11] MEDS: Ondansetron ODT 4 MG TAB PO PRN (20:15)
[2022-05-11] MEDS: Simethicone Chewable 80 MG TAB PO PRN (21:57)
[2022-05-12] MEDS ORDERED: Morphine 2 MG/ML VIAL SLOW IVP PRN (00:12)
[2022-05-12] MEDS: Transdermal Patch Removal TOP SCH (04:07)
[2022-05-12 07:35] LABS: #Eosinphils 0.1 thou/uL (0.0-0.7); #Monocytes 0.4 thou/uL (0.11-0.59); #Neutrophils 3.4 thou/uL (1.40-6.50); %Basophils 0.6 % (0.0-1.0); %Eosinophils 1.7 % (0.0-10.0); %Monocytes 7.9 % (0.0-10.0); %Neutrophils 69.9 % (42.0-75.0); Hemoglobin 8.4 g/dL (12.0-16.0); Mean Corpuscular HGB CONC 32.7 g/dL (32.0-36.0); Mean Corpuscular Volume 91.7 fl (78.0-98.0); Mean Platelet Volume 7.4 fL (7.4-10.4); Platelet Count 85 10x3/uL (130-400); RBC Distribution Width 16.3 % (11.5-14.5); Red Blood Cell (RBC) Count 2.79 mill/uL (4.20-5.40); White Blood Cell (WBC) Count 4.8 10x3/uL (4.8-10.8)
[2022-05-12] MEDS: Ferrous Sulfate 325 MG TAB PO SCH (08:54)
[2022-05-12] MEDS: Pantoprazole 40 MG VIAL IVP SCH ×2 (08:54→20:47)
[2022-05-12] MEDS: Simethicone Chewable 80 MG TAB PO PRN (13:19)
[2022-05-12] MEDS: Lidocaine 4% Patch TD SCH (15:53)
[2022-05-12] MEDS: Octreotide Acetate 1,250 MCG in Sodium Chloride 0.9% 250 ML 250 ML IVPB SCH (19:34)
[2022-05-13] MEDS: Transdermal Patch Removal TOP SCH (03:04)
[2022-05-13] MEDS: Lidocaine 4% Patch TD SCH (06:04)
[2022-05-13 06:35] LABS: Lactic Acid 0.7 mmol/L (0.5-2.2)
[2022-05-13 06:36] LABS: #Eosinphils 0.1 thou/uL (0.0-0.7); #Lymphocytes 0.9 thou/uL (1.20-3.40); #Monocytes 0.5 thou/uL (0.11-0.59); #Neutrophils 2.7 thou/uL (1.40-6.50); %Basophils 0.8 % (0.0-1.0); %Eosinophils 1.8 % (0.0-10.0); %Lymphocytes 21.7 % (21.0-51.0); %Neutrophils 64.8 % (42.0-75.0); Hemoglobin 8.3 g/dL (12.0-16.0); Mean Corpuscular HGB CONC 32.6 g/dL (32.0-36.0); Mean Corpuscular Volume 91.9 fl (78.0-98.0); Mean Platelet Volume 7.4 fL (7.4-10.4); Platelet Count 78 10x3/uL (130-400); RBC Distribution Width 15.8 % (11.5-14.5); Red Blood Cell (RBC) Count 2.78 mill/uL (4.20-5.40); White Blood Cell (WBC) Count 4.2 10x3/uL (4.8-10.8)
[2022-05-13 06:41] LABS: ALT (SGPT) 18 U/L (8-55); AST (SGOT) 18 U/L (5-34); Albumin 2.6 g/dL (3.5-5.0); Alkaline Phosphatase 58 U/L (40-110); Anion Gap 11 mmol/L (10-20); BUN (Urea Nitrogen) 5 mg/dL (9.8-20.1); Bilirubin, Total 0.7 mg/dL (0.2-1.2); Calc. Creatinine Clearance 128 mL/min (70-130); Carbon Dioxide 20 mmol/L (22-29); Chloride 110 mmol/L (98-107); Estimated GFR 107; Globulin 2.4 g/dL (2.4-3.5); Glucose 105 mg/dL (70-105); Potassium 3.5 mmol/L (3.5-5.1); Sodium 137 mmol/L (136-145)
[2022-05-13] MEDS: Pantoprazole 40 MG VIAL IVP SCH (08:33)
[2022-05-13] MEDS: Ferrous Sulfate 325 MG TAB PO SCH (08:33)
[2022-05-13 08:34] VITALS: TEMP 99
[2022-05-13 16:43] VITALS: BP 125/73
== END 2022-05-13 17:06 | disposition home or self-care (01) | DRG 441 ==
LOC: ERS 13:27 → 2NO 15:49 → T4-B 05-10 14:21
PROVIDERS: ADMIT Student in an Organized Health Care Education/Training Program; ATTEND Student in an Organized Health Care Education/Training Program
PROC: 30233N1 Transfusion of Nonautologous Red Blood Cells into Peripheral Vein, Percutaneous Approach (ICD-10-PCS; principal; 2022-05-08)
PROC: 0DJ08ZZ Inspection of Upper Intestinal Tract, Via Natural or Artificial Opening Endoscopic (ICD-10-PCS; 2022-05-09)
PROC: 0DJ08ZZ Inspection of Upper Intestinal Tract, Via Natural or Artificial Opening Endoscopic (ICD-10-PCS; 2022-05-10)
PROC: 06L38CZ Occlusion of Esophageal Vein with Extraluminal Device, Via Natural or Artificial Opening Endoscopic (ICD-10-PCS; 2022-05-11)
DX: K76.6 Portal hypertension (principal); I85.11 Secondary esophageal varices with bleeding; D62 Acute posthemorrhagic anemia; E87.20 Acidosis, unspecified; N39.0 Urinary tract infection, site not specified; K91.89 Other postprocedural complications and disorders of digestive system; R18.8 Other ascites; D50.9 Iron deficiency anemia, unspecified; K44.9 Diaphragmatic hernia without obstruction or gangrene; K52.9 Noninfective gastroenteritis and colitis, unspecified; K31.89 Other diseases of stomach and duodenum; Y83.8 Other surgical procedures as the cause of abnormal reaction of the patient, or of later complication, without mention of misadventure at the time of the procedure; N81.4 Uterovaginal prolapse, unspecified; Z20.822 Contact with and (suspected) exposure to COVID-19; Z88.8 Allergy status to other drugs, medicaments and biological substances; Z79.899 Other long term (current) drug therapy; Z87.440 Personal history of urinary (tract) infections; Z86.718 Personal history of other venous thrombosis and embolism; Z90.49 Acquired absence of other specified parts of digestive tract; Z98.51 Tubal ligation status; Z80.1 Family history of malignant neoplasm of trachea, bronchus and lung; Z86.16 Personal history of COVID-19; Z87.01 Personal history of pneumonia (recurrent); Z80.0 Family history of malignant neoplasm of digestive organs; Z86.711 Personal history of pulmonary embolism
CPT/HCPCS: 36415; 36430; 74175; 74178; 76705; 80048; 80053; 80074; 81001; 82274; 82728; 83540; 83550; 83605; 83615; 85025; 85046; 85240; 85610; 85730; 86850; 86900; 86901; 87040; 87086; 93005; 96365; 96366; 96375; C9113; J0692; J2354; J2405; J2704; J2765; J2916; J3010; J7050; P9016; Q0162; Q9967; U0002

== ENCOUNTER 2022-10-03 06:28 | Day surgery (SDC) | payer BC ==
[2022-09-30 12:11] VITALS: BMI 22.0
[2022-10-03] MEDS ORDERED: Lidocaine 1% PF 5 ML VIAL ONE (08:45)
[2022-10-03] MEDS ORDERED: PROPOFOL 200 MG/20 ML VIAL ONE (08:45)
== END 2022-10-03 09:35 | disposition home or self-care (01) ==
LOC: SDC 06:28
PROVIDERS: ATTEND Internal Medicine Gastroenterology
PROC: 0DJ08ZZ Inspection of Upper Intestinal Tract, Via Natural or Artificial Opening Endoscopic (ICD-10-PCS; principal; 2022-10-03)
DX: I85.00 Esophageal varices without bleeding (principal); K22.89 Other specified disease of esophagus; K76.6 Portal hypertension; K31.89 Other diseases of stomach and duodenum; Z90.49 Acquired absence of other specified parts of digestive tract; Z79.899 Other long term (current) drug therapy
CPT/HCPCS: J2704

== ENCOUNTER 2023-04-18 16:32 | Observation (INO) | payer BC ==
[2023-04-18 18:29] LABS: #Eosinphils 0.1 thou/uL (0.0-0.7); #Monocytes 0.4 thou/uL (0.11-0.59); #Neutrophils 3.4 thou/uL (1.40-6.50); %Basophils 0.4 % (0.0-1.0); %Eosinophils 1.9 % (0.0-10.0); %Lymphocytes 18.8 % (21.0-51.0); %Monocytes 7.6 % (0.0-10.0); %Neutrophils 70.7 % (42.0-75.0); Hematocrit 28.3 % (36.0-47.0); Hemoglobin 9.4 g/dL (12.0-16.0); Mean Corpuscular HGB CONC 33.2 g/dL (32.0-36.0); Mean Corpuscular Hemoglobin 29.2 pg (27.0-31.0); Mean Corpuscular Volume 87.9 fl (78.0-98.0); Mean Platelet Volume 10.2 fL (7.4-10.4); RBC Distribution Width 15.9 % (11.5-14.5); Red Blood Cell (RBC) Count 3.22 mill/uL (4.20-5.40); White Blood Cell (WBC) Count 4.9 10x3/uL (4.8-10.8)
[2023-04-18 18:30] LABS: Platelet Count 83 10x3/uL (130-400)
[2023-04-18 18:46] LABS: ALT (SGPT) 36 U/L (8-55); AST (SGOT) 31 U/L (5-34); Albumin 3.7 g/dL (3.5-5.0); Alkaline Phosphatase 77 U/L (40-110); Anion Gap 8 mmol/L (10-20); BUN (Urea Nitrogen) 15 mg/dL (9.8-20.1); Bilirubin, Total 0.9 mg/dL (0.2-1.2); Calc. Creatinine Clearance 0 mL/min (70-130); Calcium 8.9 mg/dL (7.8-10.44); Carbon Dioxide 25 mmol/L (22-29); Chloride 108 mmol/L (98-107); Estimated GFR 101; Globulin 3.2 g/dL (2.4-3.5); Glucose 115 mg/dL (70-105); Potassium 3.8 mmol/L (3.5-5.1); Protein, Total 6.9 g/dL (6.0-8.3); Sodium 137 mmol/L (136-145)
[2023-04-19 01:22] LABS: Influenza A by NAA Not Detected (NotDetected); Influenza B by NAA Not Detected (NotDetected); SARS-CoV-2 NAA Rapid Test Not Detected (NotDetected)
[2023-04-19] MEDS ORDERED: Pantoprazole 40 MG VIAL ONE (01:39)
[2023-04-19] MEDS ORDERED: Octreotide Acetate 500 MCG/ML VIAL ONE (01:54)
[2023-04-19] MEDS ORDERED: Pantoprazole 80 MG, Admixture Fee 1 EACH in Sodium Chloride 0.9% 100 ML IVPB SCH (02:00)
[2023-04-19] MEDS ORDERED: Octreotide Acetate 1,250 MCG in Sodium Chloride 0.9% 250 ML 250 ML IVPB SCH ×2 (02:00→03:30)
[2023-04-19 02:08] LABS: INR-International Normal Ratio 1.2; Prothrombin Time 15.3 sec (12.0-14.7)
[2023-04-19 02:09] LABS: PTT 37.1 sec (22.9-36.1)
[2023-04-19 02:33] LABS: Bilirubin Negative (Negative); Blood, Urine Negative (Negative); CAUTI Indications for Culture Dysuria,urgency,freq; Clarity Clear (Clear); Glucose, Urine (Dipstick) Normal (Negative); Ketone, Urine 10 mg/dL (Negative); Leukocyte 500 Leu/uL (Negative); Nitrite Negative (Negative); Protein, Urine (Dipstick) Negative (Neg-Trace); RBC/HPF 0-3 HPF (0-3); Specific Gravity, Urine 1.027 (1.002-1.036); Squamous Epithelial 0-3 HPF (0-3); Urobilinogen Normal mg/dL (Less than 2); pH, Urine 5.5 (5.0-9.0)
[2023-04-19 02:34] LABS: Bacteria/HPF 1+ HPF (None Seen)
[2023-04-19 02:35] LABS: Urine Culture Reflex Yes Yes
[2023-04-19] MEDS ORDERED: Ondansetron PF 4 MG/2 ML Vial IVP PRN (03:26)
[2023-04-19] MEDS ORDERED: Ondansetron ODT 4 MG TAB PO PRN (03:26)
[2023-04-19 04:50] LABS: #Eosinphils 0.1 thou/uL (0.0-0.7); #Monocytes 0.4 thou/uL (0.11-0.59); #Neutrophils 2.5 thou/uL (1.40-6.50); %Basophils 0.3 % (0.0-1.0); %Eosinophils 1.9 % (0.0-10.0); %Lymphocytes 19.7 % (21.0-51.0); %Monocytes 10.1 % (0.0-10.0); %Neutrophils 67.5 % (42.0-75.0); Hemoglobin 7.8 g/dL (12.0-16.0); Mean Corpuscular HGB CONC 32.5 g/dL (32.0-36.0); Mean Corpuscular Hemoglobin 29.4 pg (27.0-31.0); Mean Platelet Volume 10.3 fL (7.4-10.4); RBC Distribution Width 15.8 % (11.5-14.5); Red Blood Cell (RBC) Count 2.65 mill/uL (4.20-5.40); White Blood Cell (WBC) Count 3.7 10x3/uL (4.8-10.8)
[2023-04-19 05:00] LABS: ALT (SGPT) 31 U/L (8-55); AST (SGOT) 27 U/L (5-34); Albumin 3.2 g/dL (3.5-5.0); Alkaline Phosphatase 66 U/L (40-110); Anion Gap 9 mmol/L (10-20); BUN (Urea Nitrogen) 11 mg/dL (9.8-20.1); Bilirubin, Total 0.9 mg/dL (0.2-1.2); Calc. Creatinine Clearance 0 mL/min (70-130); Calcium 8.1 mg/dL (7.8-10.44); Carbon Dioxide 22 mmol/L (22-29); Chloride 109 mmol/L (98-107); Estimated GFR 106; Globulin 2.6 g/dL (2.4-3.5); Glucose 104 mg/dL (70-105); Potassium 3.7 mmol/L (3.5-5.1); Protein, Total 5.8 g/dL (6.0-8.3); Sodium 136 mmol/L (136-145)
[2023-04-19 05:10] LABS: Mean Corpuscular Volume 90.6 fl (78.0-98.0); Platelet Count 69 10x3/uL (130-400)
[2023-04-19] MEDS: Lactated Ringer's 1,000 ML IV SCH (05:16)
[2023-04-19 05:45] VITALS: BMI 22.6
[2023-04-19] MEDS ORDERED: cefTRIAXone\\ROCEPHIN 1 GM in Sodium Chloride 0.9% 100 ML IVPB SCH (08:30)
[2023-04-19] MEDS ORDERED: Non-Formulary Item 1 EACH (Ferrous Sulfate [Iron] 325 MG Tablet) PO SCH (09:00)
[2023-04-19] MEDS ORDERED: Iopamidol-370 76% 500 ML MDV (1 ML CHARGE) ONE ×2 (10:14→10:41)
[2023-04-19] MEDS ORDERED: Lidocaine 2% PF 5 ML VIAL ONE (10:41)
[2023-04-19] MEDS ORDERED: PROPOFOL 20 ML ONE ×3 (10:41→11:23)
[2023-04-19] MEDS ORDERED: PHENYLEPHRINE-NS 100 MCG/ML 10 ML SYRINGE ONE (11:01)
[2023-04-19] MEDS ORDERED: Ondansetron HCl/PF 4 MG/2 ML Vial IVP PRN (11:20)
[2023-04-19] MEDS ORDERED: Promethazine HCl 25 MG/ML VIAL IM PRN (11:20)
[2023-04-19] MEDS ORDERED: ePHEDrine Sulfate 50 MG/10 ML VIAL ONE (11:27)
[2023-04-19] MEDS: Pantoprazole 40 MG VIAL IVP SCH (19:37)
[2023-04-19] MEDS: GoLYTELY 4,000 ml Bottle PO SCH (19:38)
[2023-04-19 20:45] LABS: Hematocrit 26.8 % (36.0-47.0); Hemoglobin 8.3 g/dL (12.0-16.0); Mean Corpuscular Hemoglobin 29.4 pg (27.0-31.0); Mean Platelet Volume 10.9 fL (7.4-10.4); RBC Distribution Width 16.1 % (11.5-14.5); Red Blood Cell (RBC) Count 2.82 mill/uL (4.20-5.40); White Blood Cell (WBC) Count 3.1 10x3/uL (4.8-10.8)
[2023-04-19 20:47] LABS: Platelet Count 68 10x3/uL (130-400)
[2023-04-19] MEDS: Ferrous Sulfate 325 MG TAB PO SCH (21:57)
[2023-04-20 00:55] LABS: HBCM Index 0.07 S/CO (0-0.79); HBSAg Index 0.26 S/CO (0-0.99); Hep A IgM AB Non-Reactive S/CO (NonReactive); Hep A IgM S/CO 0.17 S/CO (0-0.79); Hep B Surf Ag Non-Reactive S/CO (NonReactive); Hep C IgG Ab Non-Reactive S/CO (NonReactive); Hepatitis B Core IgM Abs Non-Reactive S/CO (NonReactive)
[2023-04-20] MEDS ORDERED: Octreotide Acetate 1,250 MCG in Sodium Chloride 0.9% 250 ML 250 ML IVPB SCH (03:30)
[2023-04-20 07:22] LABS: #Eosinphils 0.1 thou/uL (0.0-0.7); #Monocytes 0.2 thou/uL (0.11-0.59); #Neutrophils 1.5 thou/uL (1.40-6.50); %Basophils 0.4 % (0.0-1.0); %Eosinophils 4.9 % (0.0-10.0); %Lymphocytes 29.2 % (21.0-51.0); %Monocytes 7.6 % (0.0-10.0); %Neutrophils 57.5 % (42.0-75.0); Hematocrit 26.5 % (36.0-47.0); Hemoglobin 8.3 g/dL (12.0-16.0); Mean Corpuscular HGB CONC 31.3 g/dL (32.0-36.0); Mean Corpuscular Hemoglobin 28.7 pg (27.0-31.0); Mean Platelet Volume 11.2 fL (7.4-10.4); RBC Distribution Width 16.1 % (11.5-14.5); Red Blood Cell (RBC) Count 2.89 mill/uL (4.20-5.40); White Blood Cell (WBC) Count 2.6 10x3/uL (4.8-10.8)
[2023-04-20 07:40] LABS: Platelet Count 70 10x3/uL (130-400)
[2023-04-20 07:41] LABS: ALT (SGPT) 34 U/L (8-55); AST (SGOT) 32 U/L (5-34); Albumin 3.3 g/dL (3.5-5.0); Alkaline Phosphatase 70 U/L (40-110); Anion Gap 12 mmol/L (10-20); BUN (Urea Nitrogen) 7 mg/dL (9.8-20.1); Bilirubin, Total 0.9 mg/dL (0.2-1.2); Calc. Creatinine Clearance 111 mL/min (70-130); Calcium 8.6 mg/dL (7.8-10.44); Carbon Dioxide 24 mmol/L (22-29); Chloride 110 mmol/L (98-107); Estimated GFR 104; Globulin 2.8 g/dL (2.4-3.5); Glucose 98 mg/dL (70-105); Mean Corpuscular Volume 91.7 fl (78.0-98.0); Potassium 3.9 mmol/L (3.5-5.1); Protein, Total 6.1 g/dL (6.0-8.3); Sodium 142 mmol/L (136-145)
[2023-04-20] MEDS ORDERED: Lidocaine 2% PF 5 ML VIAL ONE (12:48)
[2023-04-20] MEDS ORDERED: PROPOFOL 20 ML ONE (12:48)
[2023-04-20] MEDS: Ferrous Sulfate 325 MG TAB PO SCH (14:21)
[2023-04-20 17:12] VITALS: BP 118/71; TEMP 99.2
[2023-04-20] MEDS ORDERED: Magnesium Chloride 64 MG TAB PO SCH (21:00)
[2023-04-21] MEDS ORDERED: Potassium Chloride 20 MEQ TAB PO SCH (08:00)
== END 2023-04-20 18:35 | disposition home or self-care (01) ==
LOC: ERS 16:32 → ERHOLD 04-19 02:28 → SURG A 04-19 10:22 → T4-A 04-19 18:17
PROVIDERS: ADMIT Student in an Organized Health Care Education/Training Program; ATTEND Student in an Organized Health Care Education/Training Program
PROC: 0DJD8ZZ Inspection of Lower Intestinal Tract, Via Natural or Artificial Opening Endoscopic (ICD-10-PCS; principal; 2023-04-19)
PROC: 0DC58ZZ Extirpation of Matter from Esophagus, Via Natural or Artificial Opening Endoscopic (ICD-10-PCS; 2023-04-20)
DX: T18.128A Food in esophagus causing other injury, initial encounter (principal); D50.0 Iron deficiency anemia secondary to blood loss (chronic); K92.2 Gastrointestinal hemorrhage, unspecified; K64.8 Other hemorrhoids; I85.00 Esophageal varices without bleeding; R82.71 Bacteriuria; D69.6 Thrombocytopenia, unspecified; Z88.6 Allergy status to analgesic agent; W44.F3XA Food entering into or through a natural orifice, initial encounter
CPT/HCPCS: 36415; 36430; 74174; 74177; 80053; 80074; 81001; 83605; 83690; 85025; 85610; 85730; 86850; 86900; 86901; 87081; 87086; 87430; 93005; 96374; 96375; 96376; C9113; G0378; J2001; J2354; J2704; J3490; J7050; J7120; Q9967